=== PATIENT | male | born 1935 | race Caucasian/White ===

== ENCOUNTER 2018-05-11 11:49 | Emergency (ER) | payer MEDICARE, OTHER ==
[2018-05-11 12:53] LABS: #Eosinphils 0.1 thou/uL (0.0-0.7); #Lymphocytes 0.9 thou/uL (1.20-3.40); #Monocytes 0.7 thou/uL (0.11-0.59); #Neutrophils 5.7 thou/uL (1.40-6.50); %Lymphocytes 11.6 % (21.0-51.0); %Monocytes 9.4 % (0.0-10.0); Hemoglobin 15.1 g/dL (14.0-18.0); Mean Corpuscular HGB CONC 35.1 g/dL (32.0-36.0); Mean Corpuscular Hemoglobin 32.6 pg (27.0-31.0); Mean Corpuscular Volume 92.9 fL (78.0-98.0); Mean Platelet Volume 7.2 fL (7.4-10.4); Platelet Count 273 thou/uL (130-400); RBC Distribution Width 11.2 % (11.5-14.5); Red Blood Cell (RBC) Count 4.64 mill/uL (4.70-6.10); White Blood Cell (WBC) Count 7.3 thou/uL (4.8-10.8)
[2018-05-11 13:12] LABS: ALT (SGPT) 23 U/L (8-55); AST (SGOT) 29 U/L (5-34); Albumin 4.2 g/dL (3.4-4.8); Alkaline Phosphatase 87 U/L (40-150); Anion Gap 15 mmol/L (10-20); BUN (Urea Nitrogen) 8 mg/dL (8.4-25.7); Bilirubin, Total 0.7 mg/dL (0.2-1.2); Calc. Creatinine Clearance 0 mL/min (70-130); Calcium 9.4 mg/dL (7.8-10.44); Carbon Dioxide 22 mmol/L (23-31); Chloride 102 mmol/L (98-107); Estimated GFR-MDRD 69; Globulin 3.1 g/dL (2.4-3.5); Glucose 115 mg/dL (83-110); Protein, Total 7.3 g/dL (5.8-8.1); Sodium 134 mmol/L (136-145)
[2018-05-11 13:17] LABS: CKMB 1.4 ng/mL (0-6.6); Troponin I Less than 0.010 ng/mL (< 0.028)
[2018-05-11] MEDS ORDERED: Adacel (T-DAP) 0.5 ML VIAL ONE (13:42)
--- NOTE | 2018-05-11 14:10 | CT ---
NONCONTRAST CT HEAD: Date: 05/11/18 HISTORY: Head injury. Macular degeneration. Facial abrasions and neck pain after falling while walking. COMPARISON: None available. FINDINGS: There is an electronic device seen within the right lateral occipital scalp soft tissues resulting in significant streak artifact limiting evaluation of the right parietal and temporal lobes in this reg ion. There is diminished attenuation of the periventricular white matter, likely attributable to moderate to severe chronic small vessel ischemic changes. Small low density focus seen in the external limb of the left internal capsule which may represent a lacunar infarction of indeterminate age. Again, ther e is significant streak artifact through this region as well. No acute cortical infarction is seen. N o hemorrhage, mass effect, or midline shift is appreciated. There is diffuse cerebral volume loss. Ve ntricular system is normal in size, shape, and position for the degree of sulcal atrophy. There is a small amount of scalp soft tissue swelling in the left anterior frontal region. The orbits are normal and symmetric in appearance bilaterally. There is also mild right periorbital subcutaneou s soft tissue swelling with small hematoma adjacent to the anterior aspect of the right zygomatic bon e. There is gas seen anterior to the anterior wall of the right maxillary antrum with question of a f racture involving the anterior wall right maxillary antrum. However, there is no fluid in the right m axillary antrum as would be expected with a fracture. Visualized paranasal sinuses are clear. There a re postsurgical changes related to right mastoidectomy with evidence of cochlear implant. IMPRESSION: 1. No acute intracranial abnormalities demonstrated. 2. Left frontal scalp hematoma with right periorbital scalp soft tissue swelling and hematoma adjace nt to the right zygomatic bone. 3. Fracture anterior wall right maxillary antrum. CT facial bones is suggested for further evaluatio n. 4. Chronic small vessel ischemic changes and cerebral volume loss. 5. 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 POS: [facility]
--- NOTE | 2018-05-11 14:16 | CT ---
CT SCAN FACIAL BONES: Date: 05/11/18 HISTORY: Head injury after a fall while walking. Facial abrasions. FINDINGS: There is right periorbital subcutaneous soft tissue swelling with oval shaped area of increased densi ty adjacent to the right zygomatic bone suggesting small soft tissue hematoma. There is a minimally d epressed fracture involving the anterior wall right maxillary antrum with associated subcutaneous gas . Very tiny air fluid level is present. No additional fracture is seen involving the facial bones. Th e orbits are normal and symmetric in appearance bilaterally. There is scalp soft tissue swelling left anterior frontal region. The remainder of the visualized paranasal sinuses as well as left mastoid air cells are clear. Cochle ar implant is present on the right. Imaging of the visualized upper cervical spine demonstrates multilevel degenerative changes. There is a nondisplaced fracture involving the lateral left anterior arch of the C1 vertebral body. IMPRESSION: 1. Nondisplaced fracture involving the left anterior arch of the C1 vertebral body. 2. Minimally depressed fracture involving the anterior wall of the right maxillary antrum with small hematoma adjacent to the right zygomatic bone with right periorbital subcutaneous soft tissue swelli ng. 3. Scalp soft tissue swelling left anterior frontal region. Above findings discussed with Dr. Falcon in the emergency department on 05/11/18 at 1302 hours. CODE CR. POS: [facility]
--- NOTE | 2018-05-11 14:19 | CT ---
CT CERVICAL SPINE WITHOUT CONTRAST: Date: 05/11/18 HISTORY: Balance issues. Slipped and fell while walking in grocery store. Post-traumatic pain. TECHNIQUE: Limited evaluation of the skull base due to beam attenuation artifact secondary to a right cochlear i mplant. FINDINGS: There is a nondisplaced fracture along the anterior left C1 ring with extension into the left lateral mass of C1. Well corticated lucency along the left foramen transversarium is noted. C2 through C7 ve rtebral body heights are maintained. Additional cervical spine fractures are not appreciated. There is no prevertebral soft tissue swelling. Carotid atherosclerosis noted. There are varying degrees of central canal stenosis and foraminal narrowing due to degenerative valverde e. Evaluation is limited by technique. Calcification of the right lung apex. IMPRESSION: Left anterior C1 and left C1 lateral mass fracture. POS: [facility]
--- NOTE | 2018-05-13 17:01 | EKG ---
Test Reason : FALL Blood Pressure : / mmHG Vent. Rate : 081 BPM Atrial Rate : 081 BPM P-R Int : 136 ms QRS Dur : 076 ms QT Int : 380 ms P-R-T Axes : 041 006 034 degrees QTc Int : 441 ms Sinus rhythm with occasional Premature ventricular complexes Otherwise normal ECG Confirmed by ENE SIDDIQUI DO ([id number]), video editor MATEO SKAGGS ([id number] on 05/13/2018 5:01:02 PM Referred By: Confirmed By:ENE SIDDIQUI DO
== END 2018-05-11 14:42 | disposition home or self-care (01) ==
LOC: ERS 11:49
DX: S12.000A Unspecified displaced fracture of first cervical vertebra, initial encounter for closed fracture (principal); S02.40CA Maxillary fracture, right side, initial encounter for closed fracture; W19.XXXA Unspecified fall, initial encounter
CPT/HCPCS: 36415; 70450; 70486; 72125; 80053; 82553; 84484; 85025; 90471; 90715; 93005

== ENCOUNTER 2018-06-15 08:57 | Outpatient (CLI) | payer MEDICARE, OTHER ==
--- NOTE | 2018-06-15 10:47 | CT ---
NONCONTRAST CT CERVICAL SPINE: DATE: 06/15/18. HISTORY: Followup cervical spine fracture secondary to fall 5 weeks ago. COMPARISON: 05/11/18. FINDINGS: Again noted is the nondisplaced fracture involving the left anterior arch of the C1 vertebral body wi th slight extension to the left lateral mass or C1. The degree of separation of fracture fragments i s overall similar to the prior exam. No additional fracture is seen, and there is no evidence of a s ubluxation. There are stable degenerative changes seen in the cervical spine. Prevertebral soft tissues are within normal limits. Vascular calcification is seen in the carotid arteries. There are findings suggestive of a cochlear implant. There is symmetrical calcified biapical pleural ad parenchymal scarring. There has been no significant interval change from the prior exam. IMPRESSION: 1. Stable fracture left anterior ring of the C1 vertebral body with extension to the lateral mass wi th stable slight separation of fracture fragments. 2. CT scan of the cervical spine is stable from prior exam. POS: [facility]
== END 2018-06-15 08:58 | disposition home or self-care (01) ==
LOC: TBSIIMAG 08:57
PROVIDERS: ATTEND Neurological Surgery
DX: S12.9XXA Fracture of neck, unspecified, initial encounter (principal); S12.000A Unspecified displaced fracture of first cervical vertebra, initial encounter for closed fracture
CPT/HCPCS: 72125

== ENCOUNTER 2019-05-04 12:47 | Outpatient (CLI) | payer MEDICARE ==
--- NOTE | 2019-05-04 13:12 | RAD ---
Left hip 2 views HISTORY: Left hip pain. FINDINGS: Mild joint space narrowing, osteophytosis, and subchondral sclerosis. Femoral head contour is maintained. No acute fracture, dislocation, or aggressive osseous erosions. IMPRESSION: Mild osteoarthritic changes left hip.
== END 2019-05-04 12:48 | disposition home or self-care (01) ==
LOC: BICRAD 12:47
PROVIDERS: ATTEND Nurse Practitioner Family
DX: M25.552 Pain in left hip (principal); M16.12 Unilateral primary osteoarthritis, left hip

== ENCOUNTER 2019-07-03 10:23 | Outpatient (CLI) | payer MEDICARE ==
--- NOTE | 2019-07-03 11:19 | ULT ---
Abdominal ultrasound: 07/03/2019 COMPARISON: None HISTORY: Abdominal distention TECHNIQUE: Multiplanar grayscale sonographic imaging of the abdomen obtained. FINDINGS: The pancreas is not well seen secondary to bowel gas. Imaged portions of the IVC and aorta appear grossly unremarkable. No focal liver lesion or intrahepatic biliary dilatation is seen. Left lobe of the liver is not well visualized secondary to obscuration by bowel gas. There is no gallbladder wall thickening or pericholecystic fluid. No gallstones are noted. The sonogr apher reports a negative Jha's sign. Common bile duct measures 4 mm, within normal limits. Right kidney measures 10.6 cm in craniocaudal dimension. There is a midpole right renal cyst measurin g 1.6 cm. No right-sided hydronephrosis. Spleen measures up to 10.6 cm, within normal limits. No ascites is noted within the upper abdomen. Left kidney measures 11 cm in craniocaudal dimension and demonstrates no evidence for stone, hydronep hrosis, or mass lesion. IMPRESSION: No acute findings.
== END 2019-07-03 10:24 | disposition home or self-care (01) ==
LOC: BICULT 10:23
PROVIDERS: ATTEND Family Medicine
DX: R18.8 Other ascites (principal)
CPT/HCPCS: 76700

== ENCOUNTER 2020-03-10 18:01 | Emergency (ER) | payer MEDICARE ==
[2020-03-10] MEDS ORDERED: Ondansetron PF 4 MG/2 ML Vial ONE (18:24)
[2020-03-10] MEDS ORDERED: Morphine 4 MG/ML VIAL ONE ×2 (18:24→19:55)
[2020-03-10 18:50] LABS: #Lymphocytes 0.5 thou/uL (1.20-3.40); #Monocytes 0.7 thou/uL (0.11-0.59); #Neutrophils 12.1 thou/uL (1.40-6.50); %Eosinophils 0.1 % (0.0-10.0); %Lymphocytes 3.8 % (21.0-51.0); %Neutrophils 91.2 % (42.0-75.0); Mean Corpuscular HGB CONC 35.9 g/dL (32.0-36.0); Mean Corpuscular Volume 91.9 fL (78.0-98.0); Mean Platelet Volume 8.4 fL (7.4-10.4); Platelet Count 252 thou/uL (130-400); RBC Distribution Width 11.2 % (11.5-14.5); Red Blood Cell (RBC) Count 4.25 mill/uL (4.70-6.10); White Blood Cell (WBC) Count 13.3 thou/uL (4.8-10.8)
[2020-03-10 19:13] LABS: ALT (SGPT) 20 U/L (8-55); AST (SGOT) 33 U/L (5-34); Albumin 3.7 g/dL (3.4-4.8); Alkaline Phosphatase 101 U/L (40-110); Anion Gap 14 mmol/L (10-20); BUN (Urea Nitrogen) 8 mg/dL (8.4-25.7); Bilirubin, Total 0.4 mg/dL (0.2-1.2); CK (CPK) 117 U/L (30-200); Calc. Creatinine Clearance 0 mL/min (70-130); Calcium 8.5 mg/dL (7.8-10.44); Carbon Dioxide 21 mmol/L (23-31); Chloride 99 mmol/L (98-107); Estimated GFR-MDRD 82; Glucose 143 mg/dL (83-110); Potassium 4.1 mmol/L (3.5-5.1); Protein, Total 6.7 g/dL (5.8-8.1); Sodium 130 mmol/L (136-145)
--- NOTE | 2020-03-10 19:23 | RAD ---
LEFT HUMERUS TWO VIEWS: History: Left arm pain. FINDINGS/IMPRESSION: There is a medially displaced fracture involving the proximal shaft of the left humerus. POS: [facility]
--- NOTE | 2020-03-10 19:24 | RAD ---
LEFT FOREARM ONE VIEW: History: Pain FINDINGS/IMPRESSION: Exam is inadequate due to absence of at least two views. There is a posterior olecranon spur. No definite displaced fracture of the radius. POS: [facility]
--- NOTE | 2020-03-10 19:25 | RAD ---
LEFT HIP TWO VIEWS: History: Hip injury. Comparison: 05-04-19 FINDINGS: There are some mild arthritic changes of the hip joint. The bones appear demineralized. I do not appr eciate any evidence of fracture. IMPRESSION: No evidence of fracture. POS: [facility]
--- NOTE | 2020-03-10 20:09 | RAD ---
CHEST ONE VIEW: Date: 03-10-2020 Time: 6:14 P.M. History: Injury, left arm pain. FINDINGS: Comparison is made with 08-06-2019. The heart size is normal. Chronic changes in the lung jha are again seen without lobar consolidati on, pneumothoraces, yefri pulmonary edema, or pleural effusions. There is an acute medially displaced fracture involving the proximal shaft of the left humerus. IMPRESSION: As above. POS: [facility]
--- NOTE | 2020-03-10 20:16 | CT ---
CT OF BRAIN PERFORMED WITHOUT CONTRAST ENHANCEMENT: History: Fall with head injury. Comparison: 05-11-18 FINDINGS: There is generalized ventricular and sulcal prominence with decreased attenuation to the periventricu lar white matter consistent with some chronic white matter change. There are no signs of intracerebra l hemorrhage or extraaxial fluid collections. Once again, post-operative changes of the right mastoid air cells with an electronic device considera darren obscures detail in this region, similar to the previous exam. IMPRESSION: No acute intracranial abnormalities. POS: [facility]
--- NOTE | 2020-03-10 20:18 | CT ---
CT OF FACIAL BONES PERFORMED WITHOUT CONTRAST ENHANCEMENT: History: Fall with facial injury. Comparison: 05-11-18 FINDINGS: The nasal bone and zygomatic arches are intact. Pterygoid processes are intact. No air fluid levels within the sinuses. The mandible is intact and co ndyles appear to be in normal position. Carotid bulb calcifications are noted. Electronic device and post-operative changes of the right mast oid air cells. IMPRESSION: No acute injury. POS: [facility]
--- NOTE | 2020-03-10 20:21 | CT ---
CT CERVICAL SPINE WITH CORONAL AND SAGITTAL REFORMATIONS AND NO IV CONTRAST: History: Fall, injury, neck pain. Comparison: 06-15-18 FINDINGS: The previously noted fracture of the left anterior arch of C1 vertebral body with extension to the la teral mass appears to have healed in the interim. Multilevel degenerative changes are seen. No acute fracture, subluxation, or facet malalignment is identified. No abnormal soft tissue swelling is seen. The right trochlear implant is again noted. Biapical pleural and parenchymal scarring is again noted in the lung apices. IMPRESSION: No CT evidence of acute cervical spine fracture or subluxation. POS: [facility]
--- NOTE | 2020-03-10 20:22 | RAD ---
LEFT HAND THREE VIEWS: History: Mechanical fall with hand pain. FINDINGS: Bones appear demineralized. Arthritic changes are present. There are no signs of fracture or dislocat ion. IMPRESSION: No evidence of fracture. POS: [facility]
[2020-03-10] MEDS ORDERED: Acetaminophen 500 MG TAB ONE (20:23)
[2020-03-10] MEDS ORDERED: Fentanyl 100 MCG/2 ML VIAL ONE (20:23)
--- NOTE | 2020-03-16 11:24 | EKG ---
Test Reason : Blood Pressure : / mmHG Vent. Rate : 087 BPM Atrial Rate : 087 BPM P-R Int : 148 ms QRS Dur : 076 ms QT Int : 400 ms P-R-T Axes : 047 029 045 degrees QTc Int : 481 ms Sinus rhythm with frequent , and consecutive Premature ventricular complexes Possible Left atrial enlargement Prolonged QT Abnormal ECG Confirmed by ENE SIDDIQUI DO ([id number]), index editor DONTRELL BOO ([id number]) on 03/16/2020 11:24:22 AM Referred By: Confirmed By:ENE SIDDIQUI DO
== END 2020-03-10 21:45 | disposition home or self-care (01) ==
LOC: ERS 18:01
DX: S42.302A Unspecified fracture of shaft of humerus, left arm, initial encounter for closed fracture (principal); S00.03XA Contusion of scalp, initial encounter; W17.89XA Other fall from one level to another, initial encounter
CPT/HCPCS: 36415; 70450; 70486; 71045; 72125; 80053; 82550; 85025; 93005; 96374; 96375; 96376; J2270; J2405; J3010

== ENCOUNTER 2020-03-18 06:10 | Inpatient (IN) | payer MEDICARE, OTHER ==
[2020-03-18] MEDS ORDERED: Octreotide Acetate 50 MCG/ML AMP ONE (06:21)
[2020-03-18] MEDS ORDERED: Pantoprazole 40 MG VIAL ONE (06:21)
[2020-03-18 06:36] LABS: #Basophils 0.1 thou/uL (0.0-0.2); #Eosinphils 0.1 thou/uL (0.0-0.7); #Lymphocytes 2.1 thou/uL (1.20-3.40); #Monocytes 0.9 thou/uL (0.11-0.59); #Neutrophils 16.2 thou/uL (1.40-6.50); %Basophils 0.3 % (0.0-1.0); %Eosinophils 0.4 % (0.0-10.0); %Lymphocytes 11.1 % (21.0-51.0); %Monocytes 4.6 % (0.0-10.0); %Neutrophils 83.7 % (42.0-75.0); Hemoglobin 10.5 g/dL (14.0-18.0); Mean Corpuscular HGB CONC 33.6 g/dL (32.0-36.0); Mean Corpuscular Hemoglobin 31.6 pg (27.0-31.0); Mean Platelet Volume 8.1 fL (7.4-10.4); Platelet Count 482 thou/uL (130-400); RBC Distribution Width 11.5 % (11.5-14.5); Red Blood Cell (RBC) Count 3.33 mill/uL (4.70-6.10); White Blood Cell (WBC) Count 19.4 thou/uL (4.8-10.8)
[2020-03-18] MEDS ORDERED: Ondansetron PF 4 MG/2 ML Vial ONE (06:39)
[2020-03-18 06:41] LABS: INR-International Normal Ratio 1.2; PTT 23.2 sec (22.9-36.1)
[2020-03-18 06:58] LABS: ALT (SGPT) 20 U/L (8-55); AST (SGOT) 29 U/L (5-34); Albumin 3.2 g/dL (3.4-4.8); Alkaline Phosphatase 71 U/L (40-110); Anion Gap 18 mmol/L (10-20); BUN (Urea Nitrogen) 36 mg/dL (8.4-25.7); Bilirubin, Total 0.7 mg/dL (0.2-1.2); Calc. Creatinine Clearance 0 mL/min (70-130); Calcium 8.4 mg/dL (7.8-10.44); Carbon Dioxide 17 mmol/L (23-31); Chloride 103 mmol/L (98-107); Estimated GFR-MDRD 60; Globulin 2.7 g/dL (2.4-3.5); Glucose 211 mg/dL (83-110); Potassium 4.6 mmol/L (3.5-5.1); Protein, Total 5.9 g/dL (5.8-8.1); Sodium 133 mmol/L (136-145)
[2020-03-18] MEDS ORDERED: Octreotide Acetate 1,250 MCG in Sodium Chloride 0.9% 250 ML 250 ML IVPB SCH (07:30)
--- NOTE | 2020-03-18 07:35 | RAD ---
Chest one view HISTORY: Dyspnea. Hematemesis. COMPARISON: 03/10/2020. FINDINGS: Cardiac silhouette is magnified by projection. Pulmonary vasculature is unremarkable. Patient is slightly rotated leftward. Subtle parenchymal opacity at the left base may represent scarr ing or atelectasis and is unchanged. No lobar consolidation or evidence of pneumothorax. Biapical pleural calcification is stable. Healing fractures are now evident at the posterolateral aspect of right ribs 5 and 6. IMPRESSION : Healing right rib fractures. Stable radiographic appearance of the chest.
[2020-03-18] MEDS: Sodium Chloride 0.9% 1,000 ML IV SCH ×2 (09:42→18:44)
--- NOTE | 2020-03-18 10:02 | CON ---
DATE OF CONSULTATION: 03/18/2020 REQUESTING PHYSICIAN: Jayjay Reyes MD REASON FOR CONSULTATION: Hematemesis. HISTORY OF PRESENT ILLNESS: Demarco Rowell is an 85-year-old man, who is not a very good historian, but evidently has no significant past gastrointestinal history. He had a right humerus fracture about a week ago. His only medications are Tylenol with Codeine and naproxen, which he takes twice daily. Notably 1 week ago at the time of his humerus fracture, his hemoglobin was 14. He presented to the emergency department this morning stating he had 2 episodes of yefri hematemesis, both last night and this morning prior to arrival. He says this was a small amount mostly small blood clots, but this had never happened before. He does not have any ongoing nausea. He does not complain of any abdominal pain. There has been no melena or hematochezia, although he has not had a bowel movement for the past couple of days. He states chronic constipation is somewhat of an issue for him, but there is no history of GI bleeding. Upon arrival, he is mildly hypotensive, but not tachycardic and this has been stable the past several hours here, but his hemoglobin is down to 10.5, which is a significant decline from a week ago. BUN elevated to 36 with creatinine 1.15. He was started on Protonix and octreotide drips. He has recently arrived in the ICU. Currently, he has no other complaints. He is n.p.o. this morning. REVIEW OF SYSTEMS: Full review of systems including constitutional, head, eyes, ears, nose, throat, GI, , cardiovascular, respiratory, musculoskeletal, and neurologic systems is negative except as noted in the HPI. PAST MEDICAL HISTORY: TURP, left humerus fracture 1 week ago. ALLERGIES: NO KNOWN DRUG ALLERGIES. OUTPATIENT MEDICATIONS: 1. Tylenol with Codeine p.r.n. 2. Naproxen 375 mg twice daily. FAMILY HISTORY: Noncontributory. SOCIAL HISTORY: No smoking, alcohol, or drug use. PHYSICAL EXAMINATION: VITAL SIGNS: Temperature 96.4, pulse 75, blood pressure 97/56, and oxygen saturation 97% on room air. GENERAL: Frail 85-year-old man, sitting up in bed comfortably, in no distress. SKIN: He is pale. No jaundice. No rashes were palpable. EYES: No scleral icterus. Extraocular movements intact. ENT: Mucous membranes moist. No oral lesions. LYMPH: No submandibular or supraclavicular lymphadenopathy. THYROID: Nontender to palpation. HEART: Regular rate and rhythm. LUNGS: Clear to auscultation bilaterally. ABDOMEN: Bowel sounds present. Soft and nontender to palpation throughout. EXTREMITIES: No peripheral edema. His left arm is in a sling from recent humerus fracture. NEURO: Cranial nerves II through XII intact bilaterally. No focal deficits. LABORATORY STUDIES: Hemoglobin 10.5, which is down from 14.0 just 1 week ago; WBC 19.4; and platelets 42. INR 1.2. Sodium 133, potassium 4.6, BUN 36, and creatinine 1.15. LFTs all normal with total bilirubin 0.7, alkaline phosphatase 71, AST 29, ALT 20, and albumin 3.2. IMAGING STUDIES: Chest x-ray shows healing right rib fractures, scarring versus atelectasis of the left base. No acute processes. Looking back, he had an abdominal ultrasound in June 2019, which was a normal examination. ASSESSMENT AND PLAN: 1. Hematemesis, acute since last night. 2. Acute blood loss anemia. The patient has what appears to be upper gastrointestinal bleeding with characteristic acute blood loss anemia and elevated [id number] ratio, in the context of no prior gastrointestinal history, but ongoing NSAID use in light of his recent humerus fracture. Suspect erosive gastritis or possibly peptic ulcer disease. He is clinically stable, but has had significant decline in hemoglobin over the past week at least. I would recommend we proceed with diagnostic upper endoscopy. Continue with the Protonix and octreotide drips in the meantime. I discussed with the patient and he desires to proceed. We will plan for EGD later today. Keep n.p.o. in the meantime. Trend H and H and transfuse as needed. Thank you for the consultation. Please call anytime with questions or concerns. Job ID: [id number]
[2020-03-18] MEDS ORDERED: Fentanyl 100 MCG/2 ML VIAL ONE (11:53)
--- NOTE | 2020-03-18 12:48 | OP ---
DATE OF PROCEDURE: 03/18/2020 STATUE MAKER SURGEON: None. PROCEDURE: Esophagogastroduodenoscopy with control of hemorrhage. INDICATIONS: 1. Hematemesis. 2. Acute blood loss anemia. MEDICATIONS: See Anesthesia record. FINDINGS: After discussion of the risks, benefits, and alternatives of the procedure, informed consent was obtained and witnessed. Pre-endoscopic cardiopulmonary examination was satisfactory. Time-out was performed before sedation was achieved. Sedation was achieved with Anesthesia assistance in the endoscopy unit. The patient was kept in the supine position due to his left humerus fracture. A Pentax adult therapeutic upper endoscope was placed into the oropharynx and passed through the cricopharyngeus under direct visualization. It became quickly evident that the distal esophagus and proximal stomach were full of blood and clots. Therefore, the endoscope was removed and the patient was endotracheally intubated by Anesthesia staff for airway protection. With this having been accomplished, the upper endoscope was then passed back down into the esophagus. An extensive amount of time was spent, suctioning out old and more fresh blood and clots from the esophagus and gastric fundus. Eventually, I was able to completely suction out the blood and clots and a good examination of the entire mucosa was able to be obtained. In the distal esophagus, there was no evidence of any esophageal varices. There was a clean based ulceration in the distal esophagus just above the GE junction, but there was no stigmata of bleeding. There was surrounding friability of the esophageal mucosa. No Dara-Ness tear appreciated. The endoscope was advanced into the stomach. Forward and retroflexed views of the entire gastric mucosa were obtained. There was no evidence of any gastric varices. There was some diffuse friability and erythema throughout the stomach. In the gastric fundus along the greater curvature, there was a single gastric ulceration. This was not very large, but there was a large visible vessel associated with the ulcer. It was not actively bleeding at the time of the examination. I placed 3 hemoclips to the visible vessel on the ulcer site and good hemostasis was maintained. The endoscope was passed through the pylorus and into the first and second portions of the duodenum, which appeared unremarkable. The upper endoscope was then completely withdrawn and the patient allowed to recover. The patient tolerated the procedure well. There were no immediate postprocedure complications. IMPRESSION: 1. Small gastric ulcer with visible vessel in the fundus, not actively bleeding at the time of the examination, but clearly representing his recent bleeding lesion. Hemoclips placed x3, with hemostasis maintained. 2. Diffuse gastritis. 3. Distal erosive esophagitis with clean based ulceration just above the gastroesophageal junction. 4. Copious old blood and blood clots extensively suctioned from the gastric lumen, with good visualization finally able to be achieved. RECOMMENDATIONS: 1. Continue the IV proton pump inhibitor drip. This can be backed off to 40 mg IV q.12 hours dosing tomorrow. On hospital discharge, continue with proton pump inhibitor twice daily dosing orally, and continue this for at least 2 months, then back off to once daily dosing thereafter. 2. Avoid nonsteroidal anti-inflammatory drugs. 3. Check H pylori serology. If present, treat with triple therapy and confirm eradication. 4. Octreotide can be discontinued. 5. Clear liquid diet today. If doing well tomorrow, can advance diet as tolerated. 6. Continue to trend H and H, and transfuse as needed. 7. Please call anytime with questions or concerns. Job ID: [id number]
[2020-03-18] MEDS ORDERED: EPHEDRINE 25 MG/5 ML SYRINGE ONE (14:15)
[2020-03-18] MEDS ORDERED: PROPOFOL 200 MG/20 ML VIAL ONE (14:15)
[2020-03-18] MEDS ORDERED: Succinylcholine Chloride 20 MG/ML 10 ml SYRINGE FS ONE (14:15)
[2020-03-18] MEDS ORDERED: PHENYLEPHRINE-NS 100 MCG/ML 10 ML SYRINGE ONE (14:15)
[2020-03-18] MEDS ORDERED: Acetaminophen/Codeine 30-300mg Tablet PO PRN (17:10)
[2020-03-18] MEDS ORDERED: Polyethylene Glycol 3350 17 GM Packet PO PRN (17:10)
[2020-03-18] MEDS ORDERED: Ondansetron PF 4 MG/2 ML Vial IVP PRN (17:11)
[2020-03-18] MEDS ORDERED: Bisacodyl 10 MG SUPP PR PRN (17:11)
[2020-03-18] MEDS ORDERED: Acetaminophen 325 MG TAB PO PRN (17:11)
[2020-03-18] MEDS ORDERED: Senokot S 8.6-50 MG TAB PO PRN (17:11)
[2020-03-18] MEDS ORDERED: Ondansetron ODT 4 MG TAB PO PRN (17:11)
[2020-03-18] MEDS ORDERED: Calcium Carbonate 500 MG ChewTAB PO PRN (17:11)
[2020-03-18 18:10] LABS: Phosphorus 3.8 mg/dL (2.3-4.7)
[2020-03-18 18:12] LABS: Anion Gap 17 mmol/L (10-20); BUN (Urea Nitrogen) 44 mg/dL (8.4-25.7); Calc. Creatinine Clearance 54 mL/min (70-130); Carbon Dioxide 18 mmol/L (23-31); Chloride 108 mmol/L (98-107); Estimated GFR-MDRD 68; Glucose 156 mg/dL (83-110); Iron 45 ug/dL (65-175); Iron Binding Capacity, Total 236 mcg/dL (261-462); Sodium 138 mmol/L (136-145)
[2020-03-18 18:18] LABS: Hemoglobin 9.9 g/dL (14.0-18.0); Platelet Count 314 thou/uL (130-400)
[2020-03-18 18:31] LABS: Ferritin 155.49 ng/mL (22-322)
[2020-03-18] MEDS: cefTRIAXone\\ROCEPHIN 2 GM in Sodium Chloride 0.9% 100 ML IVPB SCH (18:44)
--- NOTE | 2020-03-18 19:16 | HP ---
PRIMARY CARE PHYSICIAN: Dr. Iglesias. CHIEF COMPLAINT: Hematemesis. HISTORY OF PRESENT ILLNESS: The patient is an 85-year-old male with no significant past medical history that presents to the ER with above complaint. The patient reports approximately 2 episodes of vomiting blood. He had a recent left humerus fracture, but no fall since. He denies any history of liver disease. He denies use of any blood thinners. He denies any abdominal pain, diarrhea or bloody stools. He is currently taking NSAIDs, naproxen for his left humerus fracture pain. Denies any fever or chills. Denies any light headedness or chest pain or SOB. For these reasons, the patient was brought into the ER. The patient presented with a normal blood pressure, tachycardic with a heart rate of 97, respirations were 24, he was 100% on room air. He was afebrile. His hemoglobin and hematocrit were 10.5 and 31.3 respectively, platelets were 482, WBCs were 19.4. His PT was 25, his INR was 1.2. His BUN was 36 and his creatinine was 1.15. He was started on octreotide and PPIs IV. He was given IV fluids, 1 L normal saline, and some Zofran, and GI was consulted, Dr. Ortiz. PAST MEDICAL HISTORY: 1. Hearing loss. 2. Macular degeneration. PAST SURGICAL HISTORY: 1. Left humerus fracture approximately 1 week ago. 2. Right hip fracture. 3. TURP. SOCIAL HISTORY: The patient lives with his family at home. He has no history of smoking, illicit drug use, or alcohol intake. FAMILY HISTORY: Noncontributory to this case. ALLERGIES: NO KNOWN DRUG ALLERGIES. HOME MEDICATIONS: 1. Naproxen 375 p.o. b.i.d. 2. Tylenol with codeine #3 one pill p.o. q.6 p.r.n. pain. 3. Flomax 0.4 mg p.o. daily. REVIEW OF SYSTEMS: All review of systems are negative unless otherwise stated in the HPI. PHYSICAL EXAMINATION: VITAL SIGNS: Temperature 98.3, blood pressure 111/63, heart rate 116, respirations 16, 98% on room air. CONSTITUTIONAL: The patient is alert, oriented to person, place, and time. The patient has intermittent bouts of confusion, but no focal deficits and able to follow commands. HEAD: Atraumatic and normocephalic. EYES: PERRLA. Extraocular muscles intact. Sclerae nonicteric. ENT: TMs intact bilaterally. Nares are patent bilaterally. Oropharynx is clear. Uvula midline. Pale mucous membranes, no oral lesions, and dry mucous membranes. NECK: Trachea midline. Supple. No JVD. No cervical adenopathy. RESPIRATIONS: Respirations are even and unlabored. Clear to auscultation. No wheezes, rhonchi, or rales. CARDIAC: S1, S2 appreciated. 3/6 murmur. No rubs or gallops. ABDOMEN: Abdomen is ocuk-br-oqsdgjbnrz tender to the left lower quadrant. It is firm in the lower left quadrant. There is no rebounding. There is no guarding. The patient is passing flatus. Last BM was this morning with pellet stools. Negative Jha sign. BACK: No CVA tenderness. No central spinous tenderness. EXTREMITIES: Upper extremities; left upper extremity has decreased range of motion secondary to humerus fracture. There is swelling and bruising. Right upper extremity is normal. Strength normal. Sensation is intact bilaterally. Palpable radial pulses. Lower extremities; full range of motion. Strength intact. Sensation intact. Palpable pedal pulses. No swelling. NEUROLOGIC: Cranial nerves 2 through 12 are intact. No focal deficits. The patient is slightly confused, but he is alert and oriented to person, place, and time. Most likely, secondary to postop anesthesia. PSYCHIATRIC: No suicidal or homicidal ideation. Normal affect. LABORATORY AND DIAGNOSTIC DATA: The patient's hemoglobin was 10.5, hematocrit 31.3, platelets 482. PT 15, INR 1.2, APTT is 23.2. WBCs 19.4. Sodium 133, potassium 4.6, chloride 103, carbon dioxide 17, creatinine 1.15, BUN 36, glucose 211. T bilirubin 0.7, AST 29, ALT 20, alkaline phosphatase 71, albumin 3.2. Chest x- ray was negative for any acute process. Positive for healing right rib fractures. IMPRESSION AND PLAN: 1. Hematemesis. We will admit the patient to telemetry for inpatient status. Expected length of stay, at least 2 midnights. Currently, the patient is mildly tachycardic with a stable blood pressure, stable respirations, and stable SpO2. The patient is status post EGD from Dr. Ortiz who found a nonbleeding gastric ulcer. Then, he placed clips. We will continue the Protonix drip, Rocephin IV, and IV fluids. We will trend H and H. We will check a mag and phos. Continue clear liquid diet and check iron studies. 2. Acute blood loss anemia secondary to #1. 3. Hypotension, resolved. The patient presented with low blood pressure in the ER. 4. Hyponatremia. The patient presented with a sodium of 133, mild. Continue IV fluids and recheck orthostatic vital signs in the a.m. 5. Sequential compression devices for deep venous thrombosis prophylaxis. No pharmacoprophylaxis secondary to frequent falls and bleeding. Protonix for gastrointestinal prophylaxis. Consult PT and OT. The patient is a full code. Discussed the case with Dr. Flood. Job ID: [id number] [facility]
[2020-03-18] MEDS: Dextrose 5 %-0.45 % NaCl 1,000 ML IV SCH (19:26)
[2020-03-18] MEDS ORDERED: Fleet Enema 133 ML BOT PR SCH (20:00)
--- NOTE | 2020-03-18 20:08 | RAD ---
ONE VIEW ABDOMEN: 03/18/20 HISTORY: Abdominal rigidity. COMPARISON: None. FINDINGS: Supine view of the abdomen demonstrates multiple air filled loops of small bowel. Scattered fecal mat erial is noted in the colon. No evidence of pneumoperitoneum on the supine projection. There appears to be postsurgical change in the epigastric region. IMPRESSION: Prominent air filled loops of small bowel. Better interrogation with abdomen and pelvic CT utilizing oral and IV contrast is recommended. POS: PPP
[2020-03-18] MEDS: Tamsulosin HCl 0.4 MG CAP PO SCH (20:45)
[2020-03-19] MEDS: Pantoprazole 80 MG, Admixture Fee 1 EACH in Sodium Chloride 0.9% 100 ML IVPB SCH ×3 (00:25→23:50)
[2020-03-19 03:55] LABS: ALT (SGPT) 17 U/L (8-55); AST (SGOT) 20 U/L (5-34); Albumin 2.8 g/dL (3.4-4.8); Alkaline Phosphatase 59 U/L (40-110); Anion Gap 12 mmol/L (10-20); BUN (Urea Nitrogen) 38 mg/dL (8.4-25.7); Bilirubin, Total 0.4 mg/dL (0.2-1.2); Calc. Creatinine Clearance 57 mL/min (70-130); Calcium 7.6 mg/dL (7.8-10.44); Carbon Dioxide 18 mmol/L (23-31); Chloride 108 mmol/L (98-107); Estimated GFR-MDRD 73; Glucose 175 mg/dL (83-110); Potassium 4.1 mmol/L (3.5-5.1); Protein, Total 4.8 g/dL (5.8-8.1); Sodium 134 mmol/L (136-145)
[2020-03-19 04:03] LABS: Band 4 % (5-11); Hemoglobin 8.1 g/dL (14.0-18.0); Hypochromia SLIGHT = 6-15 cells (100X) (0-5/hpf); Lymphocytes 6 % (21-51); MDiff Complete? YES; Mean Corpuscular HGB CONC 34.2 g/dL (32.0-36.0); Mean Corpuscular Hemoglobin 32.4 pg (27.0-31.0); Mean Corpuscular Volume 94.8 fL (78.0-98.0); Mean Platelet Volume 7.7 fL (7.4-10.4); Monocytes 4 % (0-10); Neutrophil 86 % (42-75); Platelet Count 330 thou/uL (130-400); Platelet Morphology Comment Appears Adequate; RBC Distribution Width 11.8 % (11.5-14.5); White Blood Cell (WBC) Count 22.8 thou/uL (4.8-10.8)
[2020-03-19] MEDS: Dextrose 5 %-0.45 % NaCl 1,000 ML IV SCH ×2 (06:08→12:55)
--- NOTE | 2020-03-19 10:35 | PRG ---
DATE OF SERVICE: 03/19/2020 SUBJECTIVE: The patient is without complaints this morning. He denies having any abdominal pain. No nausea or vomiting. He did have one non-melenic stool overnight. PHYSICAL EXAMINATION: VITAL SIGNS: Temperature 97.6, blood pressure 106/54, pulse 81. GENERAL: He is sleepy, but readily arousable. He appears weak and pale, but in no distress. HEENT: Shows anicteric sclerae. Oropharynx is moist. CV: Shows normal S1 and S2. Regular rate and rhythm. CHEST: Shows breath sounds. Poor excursion. ABDOMEN: Soft. No distention. No tympany. No tenderness. He has active bowel sounds. EXTREMITIES: Show no edema. LABORATORY DATA: WBCs 22.8; hemoglobin 8.1 at 3:00 a.m., 9.9 at 6:00 p.m. yesterday; platelet count 330. Sodium 134, potassium 4.1, chloride 108, CO2 of18, creatinine 0.97, BUN of 38. LFTs are normal. Vitamin B12 is 628. Folic acid is 18.5. Ferritin is 155, TIBC is 236, serum iron is 45. ASSESSMENT: 1. Upper gastrointestinal bleed from fundic gastric ulcer with visible vessel, status post hemoclip placement. Also could be NSAID related. 2. Erosive esophagitis. 3. Recent right humerus fracture with usage of Tylenol 3 and Naprosyn for pain. 4. Acute blood loss anemia. Blood count is trending down, but without sign of active bleeding, likely equalization. RECOMMENDATION: 1. Continue to monitor and trend blood count. 2. Advance diet to full liquid. 3. The patient is stable to be transferred to floor from GI standpoint, we will follow. 4. Continue with IV pantoprazole, with transition to p.o. when the patient is fully p.o. Job ID: [id number]
[2020-03-19 10:53] LABS: Hemoglobin 7.6 g/dL (14.0-18.0); Platelet Count 300 thou/uL (130-400)
--- NOTE | 2020-03-19 14:29 | PDOC.EVN ---
Event Note - Event Note Event Note: Patient seen and examined for GI bleeding. Chart reviewed. Confused. Vitals reviwed. Lungs CTA b/l. Heart S1S2 +. Case d/w DOCK OPERATOR Nelson. I agree with the note, A and P per DIONICIO Daomn.
--- NOTE | 2020-03-19 16:13 | PDOC.HOSPP ---
- Subjective Encounter Date: 03/19/20 Encounter Time: 10:30 Subjective: Patient seen and examined for GI bleeding. No new bleeding. No N/V. No new complaints. Overnight events noted - Objective Vital Signs & Weight: Vital Signs (12 hours) Temp Pulse Pulse Pulse Resp BP BP 03/19/20 16:00 98.5 F 111 H 19 03/19/20 13:20 98.1 F 106 H 14 03/19/20 11:35 98.0 F 03/19/20 11:15 108 H 110 H 109/69 137/69 03/19/20 08:00 03/19/20 07:00 97.6 F BP BP BP Pulse Ox Pulse Ox Pulse Ox 03/19/20 16:00 123/58 L 94 L 03/19/20 13:20 115/53 L 94 L 03/19/20 11:35 03/19/20 11:15 96 96 03/19/20 08:00 106/69 112/68 94 L 03/19/20 07:00 Weight Weight 165 lb 9.074 oz Most Recent Monitor Data Heart Rate from ECG 109 NIBP 137/69 NIBP BP-Mean 91 Respiration from ECG 24 SpO2 96 I&O: 03/18/20 03/19/20 03/20/20 06:59 06:59 06:59 Intake Total 2625 480 Output Total 1600 400 Balance 1025 80 Result Diagrams: 03/19/20 16:12 03/19/20 02:50 EKG Reviewed by me: Yes (Tele SR) Hospitalist ROS - Review of Systems Respiratory: denies: cough, dry, shortness of breath, hemoptysis, SOB with excertion, pleuritic pain, sputum, wheezing, other Cardiovascular: denies: chest pain, palpitations, orthopnea, paroxysmal noc. dyspnea, edema, light headedness, other Gastrointestinal: denies: nausea, vomiting, abdominal pain, diarrhea, constipation, melena, hematochezia, other - Medication Medications: Active Medications Generic Name Dose Route Start Last Admin Trade Name Freq PRN Reason Stop Dose Admin Pantoprazole Sodium 80 mg/ 100 mls @ 10 mls/hr 03/18/20 07:30 03/19/20 12:55 Miscellaneous Medication 1 IVPB 100 mls each/ Sodium Chloride INF MYRIAM Administration Ceftriaxone Sodium 2 gm/ 100 mls @ 200 mls/hr 03/18/20 18:00 03/18/20 18:44 Sodium Chloride IVPB 100 mls Q24HR MYRIAM Administration Dextrose/Sodium Chloride 1,000 mls @ 75 mls/hr 03/18/20 19:15 03/19/20 12:55 D5 1/2 Ns IV 1,000 mls .[id number] MYRIAM Administration Tamsulosin HCl 0.4 mg 03/18/20 21:00 03/18/20 20:45 Flomax PO 0.4 mg HS MYRIAM Administration - Exam General Appearance: NAD Heart: RRR, no gallops Respiratory: no wheezes, no ronchi Gastrointestinal: non-tender, non-distended, normal bowel sounds Extremities: no cyanosis, no clubbing Neurological: no new deficit Hosp A/P - Plan DVT proph w/SCDs UGI bleeding due to gastric ulcer s/p hemoclip Erosive esophagitis Acute blood loss anemia Hypotension due to GI bleeding - improved Urinary retention requiring banks catheter placement Recent humeral fracture BPH Hyponatremia PLAN: Cont IVF Cont Protonix drip Advance diet to Full liqd PT eval Family updated Cont Flomax Orthostatic vitals in AM Monitor H/H Transfer to tele
[2020-03-19 16:22] LABS: Hemoglobin 7.8 g/dL (14.0-18.0); Platelet Count 288 thou/uL (130-400)
--- NOTE | 2020-03-19 18:25 | CON ---
DATE OF CONSULTATION: 03/19/2020 REASON FOR CONSULTATION: Urinary retention. HISTORY OF PRESENT ILLNESS: This is an 85-year-old male, who has recently fallen and broken his left arm. He was then hospitalized yesterday for upper GI bleed due to a gastric ulcer, which has now been hemoclipped. He was found to be in urinary retention last night and Shannon catheter was placed. In reviewing his records, I see that he has a history of transurethral resection of the prostate several years ago. More recently, he has been followed by Dr. Melo who has been managing his overactive symptoms and incontinence. He was scheduled for cystoscopy in the office today to rule out bladder neck contracture, but is currently hospitalized. In speaking with the patient this afternoon, he is not able to answer any of my questions or provide much meaningful information. He remains very disoriented. Information has been taken from the patient's chart as he cannot provide any answers. PAST MEDICAL HISTORY: 1. Macular degeneration. 2. Hearing loss. PAST SURGICAL HISTORY: 1. Hip fracture. 2. Transurethral resection of prostate. FAMILY HISTORY: Reviewed from the chart. Noncontributory. SOCIAL HISTORY: . Lives in [place]. Nonsmoker. ALLERGIES: NO KNOWN DRUG ALLERGIES. MEDICATIONS: Reviewed, pertinent for Flomax. REVIEW OF SYSTEMS: Unable to obtain secondary to the patient's disorientation. PHYSICAL EXAMINATION: VITAL SIGNS: Afebrile, vitals stable. Good urine output. GENERAL: No acute distress. HEAD: Normocephalic and atraumatic. EYES: Extraocular movements intact. Sclerae nonicteric. NECK: Supple. Trachea midline. LUNGS: Breathing unlabored. Symmetric chest expansion. HEART: Regular rate and rhythm. ABDOMEN: Soft, nontender, and nondistended. : Normal phallus with Shannon catheter in good position, draining clear urine. EXTREMITIES: Lower extremities without clubbing, cyanosis, or edema. Normal right upper extremity. Left upper extremity in a sling with significant bruising and edema. NEUROLOGIC: Alert and oriented to person and place only. LABORATORY DATA: Reviewed, showing creatinine 0.97. ASSESSMENT AND PLAN: 1. Urinary retention. 2. History of transurethral resection of prostate with possible bladder neck contracture. Given the patient's disorientation and overall health status currently, Shannon catheter will need to remain likely for at least 2 weeks. I will help arrange followup with Dr. Melo for void trial at that point. Job ID: [id number]
[2020-03-19] MEDS: cefTRIAXone\\ROCEPHIN 2 GM in Sodium Chloride 0.9% 100 ML IVPB SCH (18:43)
[2020-03-19] MEDS: Tamsulosin HCl 0.4 MG CAP PO SCH (20:28)
[2020-03-19] MEDS: Polyethylene Glycol 3350 17 GM Packet PO SCH (20:28)
[2020-03-20] MEDS: Dextrose 5 %-0.45 % NaCl 1,000 ML IV SCH (00:23)
[2020-03-20 05:11] LABS: ALT (SGPT) 22 U/L (8-55); AST (SGOT) 33 U/L (5-34); Albumin 2.9 g/dL (3.4-4.8); Alkaline Phosphatase 74 U/L (40-110); Anion Gap 11 mmol/L (10-20); BUN (Urea Nitrogen) 26 mg/dL (8.4-25.7); Bilirubin, Total 0.4 mg/dL (0.2-1.2); Calc. Creatinine Clearance 65 mL/min (70-130); Calcium 7.8 mg/dL (7.8-10.44); Carbon Dioxide 20 mmol/L (23-31); Chloride 106 mmol/L (98-107); Estimated GFR-MDRD 85; Globulin 2.2 g/dL (2.4-3.5); Glucose 157 mg/dL (83-110); Magnesium 1.8 mg/dL (1.6-2.6); Potassium 3.7 mmol/L (3.5-5.1); Protein, Total 5.1 g/dL (5.8-8.1); Sodium 133 mmol/L (136-145)
[2020-03-20 05:37] LABS: #Eosinphils 0.1 thou/uL (0.0-0.7); #Lymphocytes 0.8 thou/uL (1.20-3.40); #Monocytes 1.9 thou/uL (0.11-0.59); #Neutrophils 19.7 thou/uL (1.40-6.50); %Eosinophils 0.4 % (0.0-10.0); %Lymphocytes 3.5 % (21.0-51.0); %Monocytes 8.4 % (0.0-10.0); %Neutrophils 87.7 % (42.0-75.0); Hemoglobin 8.1 g/dL (14.0-18.0); Mean Corpuscular HGB CONC 35.1 g/dL (32.0-36.0); Mean Corpuscular Hemoglobin 33.3 pg (27.0-31.0); Mean Corpuscular Volume 94.9 fL (78.0-98.0); Mean Platelet Volume 7.4 fL (7.4-10.4); Platelet Count 289 thou/uL (130-400); Red Blood Cell (RBC) Count 2.44 mill/uL (4.70-6.10); White Blood Cell (WBC) Count 22.4 thou/uL (4.8-10.8)
--- NOTE | 2020-03-20 08:03 | CON ---
DATE OF CONSULTATION: 03/19/2020 HISTORY OF PRESENT ILLNESS: Mr. Rowell is an 85-year-old male, who is admitted to the intermediate care unit. He reportedly had been throwing up blood. He is a poor historian. All he would say to me was that he had to be home for the [facility]. He has a history of recent fracture. He has been taking anti-inflammatories for this. He has gone down for endoscopy and was found to have an ulcer in the visible vessel. He clinically appears to have stopped bleeding. All he will say is that he wants to go home. PAST MEDICAL HISTORY: Remarkable for, 1. TURP. 2. History of a humerus fracture. FAMILY HISTORY: Negative for lung disease in early age. REVIEW OF SYSTEMS: Otherwise not accurately obtainable. PHYSICAL EXAMINATION: VITAL SIGNS: Blood pressures in the 120 range. Heart rate was in the 90s. He is afebrile. Oximetry is in the mid-to-high 90s on room air. HEAD AND NECK: Unremarkable. His pupils are equal. Sclerae are anicteric. His neck is without lymphadenopathy. LUNGS: Clear. HEART: Regular rhythm. ABDOMEN: Soft, minimally tender in his epigastrium. EXTREMITIES: Without clubbing, cyanosis, or edema. NEURO: Grossly nonfocal. Again, he was very tangential and appeared not to understand my reasons for him staying in the hospital, stating he just needed to be home for the [facility]. IMPRESSION: Gastrointestinal bleed, clinically stabilizing. His hemoglobin was 10.5 on presentation, a week before it was 14.0 and the lowest has been at 7.6, which was in the morning of consultation. He is being followed closely by Gastroenterology. He appears to be stable to move out of the intermediate care unit. TIME SPENT: This is a 50-minute consult, 50% of the time spent on the unit coordinating care. Job ID: [id number]
[2020-03-20] MEDS: Acetaminophen/Codeine 30-300mg Tablet PO PRN (08:47)
[2020-03-20] MEDS: Pantoprazole 80 MG, Admixture Fee 1 EACH in Sodium Chloride 0.9% 100 ML IVPB SCH (10:08)
[2020-03-20] MEDS ORDERED: Nitroglycerin 0.4 MG TAB (25 Tab Bottle) PO PRN (18:09)
[2020-03-20] MEDS: Metoprolol Tartrate 25 MG TAB PO SCH (20:53)
[2020-03-20] MEDS: Polyethylene Glycol 3350 17 GM Packet PO SCH (20:53)
[2020-03-20] MEDS: Tamsulosin HCl 0.4 MG CAP PO SCH (20:53)
[2020-03-21] MEDS: Acetaminophen/Codeine 30-300mg Tablet PO PRN (04:58)
[2020-03-21] MEDS: Metoprolol Tartrate 25 MG TAB PO SCH (09:11)
--- NOTE | 2020-03-21 09:19 | PDOC.HOSPP ---
- Subjective Encounter Date: 03/20/20 Encounter Time: 16:00 Subjective: Patient seen and examined for GI bleed. RN reported intermittent Afib. Toleraing full liqd diet. No new complaints. No overnight events - Objective Vital Signs & Weight: Vital Signs (12 hours) Temp Pulse Resp BP BP BP Pulse Ox 03/21/20 07:40 97.2 F L 83 20 122/59 L 108/53 L 107/53 L 98 03/21/20 04:00 98.2 F 102 H 16 121/56 L 95 03/21/20 00:00 99 24 H Weight Weight 174 lb 2.643 oz Most Recent Monitor Data Heart Rate from ECG 109 NIBP 137/69 NIBP BP-Mean 91 Respiration from ECG 24 SpO2 96 I&O: 03/20/20 03/21/20 03/22/20 06:59 06:59 06:59 Intake Total 2440 1040 Output Total 825 700 Balance 1615 340 Result Diagrams: 03/20/20 04:35 03/20/20 04:35 EKG Reviewed by me: Yes (Tele SR with intermittent Afib) Hospitalist ROS - Review of Systems Respiratory: denies: cough, dry, shortness of breath, hemoptysis, SOB with excertion, pleuritic pain, sputum, wheezing, other Cardiovascular: denies: chest pain, palpitations, orthopnea, paroxysmal noc. dyspnea, edema, light headedness, other Gastrointestinal: denies: nausea, vomiting, abdominal pain, diarrhea, constipation, melena, hematochezia, other - Medication Medications: Active Medications Generic Name Dose Route Start Last Admin Trade Name Freq PRN Reason Stop Dose Admin Acetaminophen/Codeine Phosphate 1 tab 03/18/20 17:14 03/21/20 04:58 Tylenol #3 PO 1 tab Q6H PRN Administration Moderate Pain (4-6) Metoprolol Tartrate 12.5 mg 03/20/20 21:00 03/21/20 09:11 Lopressor PO 12.5 mg BID MYRIAM Administration Pantoprazole Sodium 40 mg 03/20/20 21:00 03/21/20 09:11 Protonix PO 40 mg BID MYRIAM Administration Polyethylene Glycol 17 gm 03/19/20 21:00 03/20/20 20:53 Miralax PO 17 gm HS MYRIAM Administration Tamsulosin HCl 0.4 mg 03/18/20 21:00 03/20/20 20:53 Flomax PO 0.4 mg HS MYRIAM Administration - Exam General Appearance: NAD Heart: RRR, no gallops Respiratory: no wheezes, no ronchi Gastrointestinal: non-tender, non-distended, normal bowel sounds Extremities: no cyanosis, no clubbing Neurological: no new deficit Hosp A/P - Plan DVT proph w/SCDs UGI bleeding due to gastric ulcer s/p hemoclip Erosive esophagitis Acute blood loss anemia New onset Afib - rate controlled - not a anticoag candidate Hypotension due to GI bleeding - improved Urinary retention requiring banks catheter placement Recent humeral fracture BPH Hyponatremia PLAN: Add low dose Metoprolol Change Protonix - change to PO Advance diet PT eval Cont Flomax AM labs
--- NOTE | 2020-03-21 10:40 | PRG ---
DATE OF SERVICE: 03/20/2020 SUBJECTIVE: Mr. Rowell is resting comfortably. He is sleeping, easily arousable. He has had no overt bleeding. OBJECTIVE: VITAL SIGNS: Pulse is 101 to 107, temperature 99.4, blood pressure 118/54. ABDOMEN: Soft, nontender. LABORATORY DATA: White count hemoglobin is 8.1, platelet count 289, 87% segs. Sodium 133, potassium 3.7, BUN and creatinine are 26 and 0.85. BUN has come down from 44 on presentation. Liver function tests normal. Protein 5.1, albumin 3.1. TSH normal. B12 628, ferritin 155, iron was 45 on presentation, TIBC was 236 on presentation, both were low. ASSESSMENT: 1. Gastrointestinal hemorrhage from fundic gastric ulcer with visible vessel, status post hemoclip, was felt to be NSAID related. 2. Erosive esophagitis. 3. Anemia, stable. He was taking Naprosyn and Tylenol 3 for humerus fracture. His iron studies indicate more of a chronic anemia. Anemia is likely a combination of chronic disease and acute gastrointestinal bleeding. There is no sign of acute bleeding now. 4. Leukocytosis of unclear etiology, possibility of pneumonia, aspiration with anesthesia or urinary tract infection should all be considered. PLAN: We would continue PPI therapy. We will at this time if there is any evidence of acute gastrointestinal hemorrhage. If I can be of any further assistance in the patient's care, please do not hesitate to contact me. Job ID: [id number]
[2020-03-21] MEDS: Dextrose 5 %-0.45 % NaCl 1,000 ML IV SCH (12:48)
--- NOTE | 2020-03-21 14:00 | PRG ---
DATE OF SERVICE: 03/21/2020 SUBJECTIVE: We were asked by the [facility] Service to see patient. The patient was seen in our office on March 08 time frame for a left proximal humerus fracture. At that time, he was placed in a clamshell brace for his fracture. We were called about the patient prior to the . He was in the ER and we had the patient put into a sling. The reason [facility] called us was he had increased edema and ecchymosis to that left upper extremity specially into the forearm and digits. Currently, the patient is at bedside, eating. He has been admitted for hematemesis and is currently working with physical therapy. OBJECTIVE: I looked at the patient's arm. The clamshell is on well. He does have some increased ecchymosis and edema to the left upper extremity, but he is moving his digits okay. They are swollen, but he has good sensations and movements. I asked the patient if he was getting better. He states he is moderately feeling better and we encouraged him to move the arm a little bit more. ASSESSMENT: Humerus fracture, healing well. PLAN: I spoke with [facility] doctor and let them know that this is a normal finding for someone who breaks proximal humerus specially a patient in this age group. We will see him again in 2 to 4 weeks in our clinic with new x-rays, but I encouraged him to elevate the arm on a pillow, keep working in moving the hand to make sure he is trying to get the fluid out of the arm and elevate it above his heart whenever he is able to. I explained this to the tech and the patient. Hopefully in the next week or so, swelling will get little better. Pain will lessen and he will start moving that arm a little bit better. Job ID: [id number] [facility]
--- NOTE | 2020-03-21 16:02 | PDOC.HOSPP ---
- Subjective Encounter Date: 03/21/20 Encounter Time: 12:30 Subjective: Patient seen and examined for encephalopathy. Failed swallow eval. . No new complaints. No overnight events - Objective Vital Signs & Weight: Vital Signs (12 hours) Temp Pulse Resp BP BP BP Pulse Ox 03/21/20 11:32 98.1 F 85 18 118/63 94 L 03/21/20 07:40 97.2 F L 83 20 122/59 L 108/53 L 107/53 L 98 Weight Weight 174 lb 2.643 oz Most Recent Monitor Data Heart Rate from ECG 109 NIBP 137/69 NIBP BP-Mean 91 Respiration from ECG 24 SpO2 96 I&O: 03/20/20 03/21/20 03/22/20 06:59 06:59 06:59 Intake Total 2440 1040 Output Total 825 700 Balance 1615 340 Result Diagrams: 03/20/20 04:35 03/20/20 04:35 EKG Reviewed by me: Yes (Tele SR) Hospitalist ROS - Review of Systems ROS unobtainable: due to mental status - Medication Medications: Active Medications Generic Name Dose Route Start Last Admin Trade Name Freq PRN Reason Stop Dose Admin Acetaminophen/Codeine Phosphate 1 tab 03/18/20 17:14 03/21/20 04:58 Tylenol #3 PO 1 tab Q6H PRN Administration Moderate Pain (4-6) Dextrose/Sodium Chloride 1,000 mls @ 50 mls/hr 03/21/20 12:30 03/21/20 12:48 D5 1/2 Ns IV 1,000 mls .Q20H MYRIAM Administration Metoprolol Tartrate 12.5 mg 03/20/20 21:00 03/21/20 09:11 Lopressor PO 12.5 mg BID MYRIAM Administration Pantoprazole Sodium 40 mg 03/20/20 21:00 03/21/20 09:11 Protonix PO 40 mg BID MYRIAM Administration Polyethylene Glycol 17 gm 03/19/20 21:00 03/20/20 20:53 Miralax PO 17 gm HS MYRIAM Administration Tamsulosin HCl 0.4 mg 03/18/20 21:00 03/20/20 20:53 Flomax PO 0.4 mg HS MYRIAM Administration - Exam General Appearance: ill appearing General - other findings: confused Neck: supple, no JVD Respiratory: no wheezes, no rales Gastrointestinal: non-tender, non-distended Extremities: no cyanosis, no clubbing Psychiatric: somnolent Hosp A/P - Plan DVT proph w/SCDs UGI bleeding due to gastric ulcer s/p hemoclip Erosive esophagitis Acute blood loss anemia Swallow dysfunction New onset Afib - rate controlled - not a anticoag candidate Hypotension due to GI bleeding - improved Urinary retention requiring banks catheter placement Recent humeral fracture BPH Hyponatremia PLAN: NPO per CAFETERIA AIDE Cont Metoprolol Cont Protonix Advance diet PT eval Cont Flomax AM labs
[2020-03-21 16:38] LABS: #Eosinphils 0.1 thou/uL (0.0-0.7); #Monocytes 1.4 thou/uL (0.11-0.59); #Neutrophils 14.1 thou/uL (1.40-6.50); %Basophils 0.2 % (0.0-1.0); %Eosinophils 0.7 % (0.0-10.0); %Lymphocytes 5.7 % (21.0-51.0); %Monocytes 8.6 % (0.0-10.0); %Neutrophils 84.8 % (42.0-75.0); Hemoglobin 7.5 g/dL (14.0-18.0); Mean Corpuscular HGB CONC 33.4 g/dL (32.0-36.0); Mean Corpuscular Hemoglobin 31.9 pg (27.0-31.0); Mean Corpuscular Volume 95.5 fL (78.0-98.0); Mean Platelet Volume 7.4 fL (7.4-10.4); Platelet Count 335 thou/uL (130-400); RBC Distribution Width 12.2 % (11.5-14.5); Red Blood Cell (RBC) Count 2.35 mill/uL (4.70-6.10); White Blood Cell (WBC) Count 16.6 thou/uL (4.8-10.8)
[2020-03-21 17:00] LABS: Lactic Acid 1.5 mmol/L (0.5-2.2)
[2020-03-21 17:03] LABS: Anion Gap 11 mmol/L (10-20); BUN (Urea Nitrogen) 20 mg/dL (8.4-25.7); Calc. Creatinine Clearance 76 mL/min (70-130); Calcium 8.1 mg/dL (7.8-10.44); Carbon Dioxide 22 mmol/L (23-31); Chloride 106 mmol/L (98-107); Estimated GFR-MDRD Greater than 90; Glucose 132 mg/dL (83-110); Potassium 3.6 mmol/L (3.5-5.1); Sodium 135 mmol/L (136-145)
[2020-03-21 17:05] LABS: Troponin I 0.043 ng/mL (< 0.028)
--- NOTE | 2020-03-21 17:51 | RAD ---
PORTABLE CHEST: 03/21/20 PROVIDED CLINICAL HISTORY: Shortness of breath. FINDINGS: Examination is rotated, limiting assessment. Cardiac silhouette is likely within normal limits. There is interval development of bilateral perihilar air space disease, along with interstitial thickening and pulmonary vascular congestion. There is no definite pleural fluid or pneumothorax apparent. IMPRESSION: Findings suggesting congestive failure and alveolar edema. Pneumonia could have a similar appearance. POS: CORINNE
[2020-03-21] MEDS ORDERED: Furosemide 40 MG/4 ML VIAL SLOW IVP SCH (18:00)
[2020-03-21] MEDS: MEROPENEM 1 GM/50 ML 1 GM in Premix Bag 1 BAG IVPB SCH (19:19)
[2020-03-21] MEDS: Polyethylene Glycol 3350 17 GM Packet PO SCH (20:21)
[2020-03-21] MEDS: Metoprolol Tartrate 5 MG/5 ML VIAL IVP SCH (20:21)
[2020-03-21] MEDS: Pantoprazole 40 MG VIAL IVP SCH (20:21)
[2020-03-21] MEDS: Tamsulosin HCl 0.4 MG CAP PO SCH (20:21)
[2020-03-22] MEDS: MEROPENEM 1 GM/50 ML 1 GM in Premix Bag 1 BAG IVPB SCH ×3 (01:52→17:13)
[2020-03-22 04:36] LABS: Anion Gap 12 mmol/L (10-20); BUN (Urea Nitrogen) 17 mg/dL (8.4-25.7); Calc. Creatinine Clearance 69 mL/min (70-130); Calcium 7.7 mg/dL (7.8-10.44); Carbon Dioxide 23 mmol/L (23-31); Chloride 101 mmol/L (98-107); Estimated GFR-MDRD 86; Glucose 239 mg/dL (83-110); Magnesium 1.7 mg/dL (1.6-2.6); Sodium 133 mmol/L (136-145)
[2020-03-22 04:39] LABS: Potassium 2.9 mmol/L (3.5-5.1)
[2020-03-22] MEDS ORDERED: Potassium Chloride 40 MEQ in Sodium Chloride 0.9% 250 ML 250 ML IVPB SCH (05:00)
[2020-03-22 05:03] LABS: Band 6 % (5-11); Eosinophils 2 % (0-10); Hemoglobin 7.7 g/dL (14.0-18.0); Lymphocytes 6 % (21-51); MDiff Complete? YES; Mean Corpuscular HGB CONC 34.9 g/dL (32.0-36.0); Mean Corpuscular Hemoglobin 33.1 pg (27.0-31.0); Mean Platelet Volume 7.8 fL (7.4-10.4); Monocytes 7 % (0-10); Neutrophil 79 % (42-75); Platelet Count 364 thou/uL (130-400); Platelet Morphology Comment Appears Adequate; Polychromasia SLIGHT = 2-3 cells (100X) (0-2/hpf); RBC Distribution Width 12.1 % (11.5-14.5); Red Blood Cell (RBC) Count 2.31 mill/uL (4.70-6.10); White Blood Cell (WBC) Count 14.7 thou/uL (4.8-10.8)
[2020-03-22] MEDS: Metoprolol Tartrate 5 MG/5 ML VIAL IVP SCH ×4 (05:23→20:44)
[2020-03-22] MEDS ORDERED: Magnesium Sulfate 4 GM in Sodium Chloride 0.9% 250 ML 250 ML IVPB SCH (08:45)
[2020-03-22] MEDS: Dextrose 5 %-0.45 % NaCl 1,000 ML IV SCH (08:51)
[2020-03-22] MEDS: Pantoprazole 40 MG VIAL IVP SCH ×2 (08:58→20:36)
[2020-03-22] MEDS: Cyanocobalamin (Vitamin B-12) 1,000 MCG TAB PO SCH (08:58)
[2020-03-22] MEDS: Folic Acid 1 MG TAB PO SCH (08:58)
[2020-03-22] MEDS: Multivit, Therapeutic 1 TAB PO SCH (08:58)
[2020-03-22] MEDS ORDERED: Potassium Phosphate 15 MMOL, Magnesium Sulfate 4 GM in Sodium Chloride 0.9% 250 ML 250 ML IVPB SCH (09:00)
[2020-03-22] MEDS ORDERED: Metoprolol Tartrate 5 MG/5 ML VIAL IVP SCH (10:00)
[2020-03-22] MEDS ORDERED: Diltiazem 125 MG in Sodium Chloride 0.9% 100 ML IVPB SCH (12:00)
[2020-03-22] MEDS: D5 1/2 NS w/40 mEq KCL 1,000 ML IV SCH (12:02)
--- NOTE | 2020-03-22 12:54 | PDOC.HOSPP ---
- Subjective Encounter Date: 03/22/20 Encounter Time: 11:45 non-verbal Subjective: Patient seen and examined for gen weakness/GI bleed. Somnolent with intermittent confusion. No overnight events - Objective Vital Signs & Weight: Vital Signs (12 hours) Temp Pulse Resp BP Pulse Ox 03/22/20 12:05 97.8 F 94 18 124/60 94 L 03/22/20 10:37 140 H 114/69 03/22/20 08:50 97.7 F 98 20 121/58 L 96 03/22/20 04:04 96 03/22/20 04:00 98.8 F 135 H 18 111/66 96 Weight Weight 174 lb 2.643 oz Most Recent Monitor Data Heart Rate from ECG 109 NIBP 137/69 NIBP BP-Mean 91 Respiration from ECG 24 SpO2 96 I&O: 03/21/20 03/22/20 03/23/20 06:59 06:59 06:59 Intake Total 1040 1698 Output Total 700 3260 Balance 340 -1562 Result Diagrams: 03/22/20 03:37 03/22/20 03:37 Additional Labs: Laboratory Tests 03/22/20 03/22/20 03:37 03:37 C-Reactive Protein 18.15 H B-Natriuretic Peptide 456.9 H Laboratory Tests 03/22/20 03:37 Magnesium 1.7 EKG Reviewed by me: Yes (SR with int Afib with RVR) Hospitalist ROS - Review of Systems ROS unobtainable: due to mental status - Medication Medications: Active Medications Generic Name Dose Route Start Last Admin Trade Name Freq PRN Reason Stop Dose Admin Acetaminophen/Codeine Phosphate 1 tab 03/18/20 17:14 03/21/20 04:58 Tylenol #3 PO 1 tab Q6H PRN Administration Moderate Pain (4-6) Cyanocobalamin 1,000 mcg 03/22/20 09:00 03/22/20 08:58 Vitamin B-12 PO 1,000 mcg DAILY MYRIAM Administration Folic Acid 1 mg 03/22/20 09:00 03/22/20 08:58 Folvite PO 1 mg DAILY MYRIAM Administration Meropenem 1 gm/ Device 50 mls @ 100 mls/hr 03/21/20 18:00 03/22/20 10:34 IVPB 50 mls 0200,1000,1800 MYRIAM Administration Potassium Chloride/Dextrose/Sod Cl 1,000 mls @ 50 mls/hr 03/22/20 08:45 03/22 12:02 D5 1/2 Ns W/40 Meq Kcl IV 1,000 mls .Q20H MYRIAM Administration Potassium Phosphate 15 mmol/ 263 mls @ 64.461 mls/hr 03/22/20 09:00 03/22/20 10:31 Magnesium Sulfate 4 gm/ Sodium IVPB 03/22/20 13:00 263 mls Chloride NOW MYRIAM Administration Multivitamins 1 tab 03/22/20 09:00 03/22/20 08:58 Theragran PO 1 tab DAILY MYRIAM Administration Pantoprazole Sodium 40 mg 03/21/20 21:00 03/22/20 08:58 Protonix IVP 40 mg Q12HR MYRIAM Administration Polyethylene Glycol 17 gm 03/19/20 21:00 03/21/20 20:21 Miralax PO Not Given HS MYRIAM Tamsulosin HCl 0.4 mg 03/18/20 21:00 03/21/20 20:21 Flomax PO Not Given HS MYRIAM - Exam General Appearance: ill appearing Heart: RRR, no rubs Respiratory: no wheezes, rhonchi Gastrointestinal: soft, no guarding, no rigidity Extremities: no cyanosis Psychiatric: somnolent Hosp A/P - Plan plan discussed w/ family (spouse - code status - full code per pt's wishes), DVT proph w/SCDs Toxic Metaolic Encephalopathy - multifatorial - POA Swallow dysfunction with possible Aspiration Pneumonia New onset Afib with RVR - not a anticoag candidate UGI bleeding due to gastric ulcer s/p hemoclip Erosive esophagitis Acute blood loss anemia Hypotension due to GI bleeding - improved Urinary retention requiring banks catheter placement Recent humeral fracture BPH Hyponatremia/Hypokalemia/Hypomagnesemia PLAN: Change IV Metoprolol to 2.5 q4h Beltran water protocol per RN PRIOR AUTHORIZATION MBS on Tuesday - Will need COVID testing Replace electrolytes Cont IV Meropenem Cont IV Protonix Cont other meds as above AM labs r/o DVT CXR today
--- NOTE | 2020-03-22 13:21 | RAD ---
PORTABLE CHEST: DATE: 03/22/2020. Provided CLINICAL HISTORY: Shortness of breath. FINDINGS: Comparison is made with the study dated 03/21/2020. There is interval improvement in left mid and lowe r lung zone airspace disease. Improved but persistent right mid lung airspace disease. No pleural f luid or pneumothorax apparent. Cardiac silhouette again appears prominent. IMPRESSION: Improved bilateral airspace disease, with persistent consolidation involving the right mid lung zone. POS: CORINNE
[2020-03-22 13:33] LABS: CKMB 1.6 ng/mL (0-6.6)
--- NOTE | 2020-03-22 17:25 | ULT ---
BILATERAL LOWER EXTREMITY VENOUS DOPPLER 03/22/20 PROVIDED CLINICAL HISTORY: Bilateral lower extremity pain. FINDINGS: Doshi scale and color Doppler sonography with spectral analysis was performed of the common femoral, f emoral, popliteal, right posterior tibial, and greater saphenous/profunda femoral veins bilaterally. The left posterior tibial vein is not seen in its mid and distal portions. The visualized venous stru ctures of each lower extremity demonstrate a normal sonographic appearance. IMPRESSION: No sonographic evidence for lower extremity deep venous thrombosis with limitations as described. POS: CORINNE
[2020-03-22] MEDS: Tamsulosin HCl 0.4 MG CAP PO SCH (20:36)
[2020-03-22] MEDS: Polyethylene Glycol 3350 17 GM Packet PO SCH (20:37)
[2020-03-23] MEDS: Metoprolol Tartrate 5 MG/5 ML VIAL IVP SCH ×3 (03:02→09:58)
[2020-03-23] MEDS: MEROPENEM 1 GM/50 ML 1 GM in Premix Bag 1 BAG IVPB SCH ×3 (03:03→18:03)
[2020-03-23 04:17] LABS: #Eosinphils 0.2 thou/uL (0.0-0.7); #Lymphocytes 0.9 thou/uL (1.20-3.40); #Monocytes 1.4 thou/uL (0.11-0.59); %Basophils 0.2 % (0.0-1.0); %Eosinophils 1.6 % (0.0-10.0); %Lymphocytes 6.1 % (21.0-51.0); %Monocytes 9.8 % (0.0-10.0); %Neutrophils 82.3 % (42.0-75.0); Hemoglobin 7.7 g/dL (14.0-18.0); Mean Corpuscular HGB CONC 34.3 g/dL (32.0-36.0); Mean Corpuscular Hemoglobin 32.4 pg (27.0-31.0); Mean Corpuscular Volume 94.4 fL (78.0-98.0); Mean Platelet Volume 7.1 fL (7.4-10.4); Platelet Count 445 thou/uL (130-400); Red Blood Cell (RBC) Count 2.39 mill/uL (4.70-6.10); White Blood Cell (WBC) Count 14.5 thou/uL (4.8-10.8)
[2020-03-23 04:33] LABS: Phosphorus 2.2 mg/dL (2.3-4.7)
[2020-03-23 04:37] LABS: Anion Gap 11 mmol/L (10-20); BUN (Urea Nitrogen) 16 mg/dL (8.4-25.7); Calc. Creatinine Clearance 76 mL/min (70-130); Calcium 7.6 mg/dL (7.8-10.44); Carbon Dioxide 22 mmol/L (23-31); Chloride 105 mmol/L (98-107); Estimated GFR-MDRD Greater than 90; Glucose 132 mg/dL (83-110); Magnesium 2.2 mg/dL (1.6-2.6); Potassium 3.9 mmol/L (3.5-5.1); Sodium 134 mmol/L (136-145)
[2020-03-23] MEDS: D5 1/2 NS w/40 mEq KCL 1,000 ML IV SCH ×2 (06:01→06:02)
[2020-03-23] MEDS ORDERED: Amiodarone 200 MG TAB PO SCH (09:00)
[2020-03-23] MEDS: Acetaminophen/Codeine 30-300mg Tablet PO PRN (09:43)
[2020-03-23] MEDS: Folic Acid 1 MG TAB PO SCH (09:43)
[2020-03-23] MEDS: Multivit, Therapeutic 1 TAB PO SCH ×2 (09:43→10:37)
[2020-03-23] MEDS: Pantoprazole 40 MG VIAL IVP SCH (09:43)
[2020-03-23] MEDS: Cyanocobalamin (Vitamin B-12) 1,000 MCG TAB PO SCH ×2 (09:44→10:37)
[2020-03-23] MEDS ORDERED: Potassium Phosphate 15 MMOL in Sodium Chloride 0.9% 250 ML 250 ML IVPB SCH (10:00)
--- NOTE | 2020-03-23 10:53 | CON ---
DATE OF CONSULTATION: HISTORY OF PRESENT ILLNESS: The patient is an 85-year-old gentleman, who presented with a GI hemorrhage and was noted to have rapid heart rate. The patient is unable to give a coherent history. He was admitted with a severe GI bleed, and underwent an emergent endoscopy procedure. The patient was monitored on telemetry when he was noted to have a rapid irregular heart rate. The patient denies having any palpitations. PAST MEDICAL HISTORY: BPH, left humerus fracture. PAST SURGICAL HISTORY: TURP. SOCIAL HISTORY: Nonsmoker. ALLERGIES: NO KNOWN DRUG ALLERGIES. PHYSICAL EXAMINATION: GENERAL: This is an ill-appearing pale gentleman, in no acute distress. VITAL SIGNS: Blood pressure 124/60. NECK: No jugular venous distention. LUNGS: Clear to auscultation. HEART: Regular rate and rhythm. Normal S1, S2. 1/6 systolic murmur. ABDOMEN: Nondistended. EXTREMITIES: Showed trace edema. LABORATORY RESULTS: Sodium 133, potassium 2.9, chloride 101, bicarbonate 23, BUN 17, creatinine 0.84, glucose 239. White blood cell count 14.7, hemoglobin 7.7, hematocrit 22.0, platelets were 364. Telemetry monitoring revealed paroxysmal atrial fibrillation. Echocardiogram normal left ventricular ejection fraction of 60% to 65% with severe pulmonary hypertension. IMPRESSION: 1. New onset atrial fibrillation. 2. Gastrointestinal hemorrhage. 3. Severe tricuspid regurgitation. 4. Pulmonary hypertension. 5. This patient has GI hemorrhage. The patient had a short run of atrial fibrillation. The patient is not an appropriate patient for anticoagulation. He has severe pulmonary hypertension. The patient is being treated with IV Lopressor to control his heart rate. I will follow this patient with you through his hospitalization. Job ID: [id number] [facility]
--- NOTE | 2020-03-23 11:02 | PDOC.HOSPP ---
- Subjective Encounter Date: 03/23/20 Encounter Time: 09:30 non-verbal (confused) Subjective: Patient seen and examined for Sepsis. Intermittent confusion. No overnight events - Objective Vital Signs & Weight: Vital Signs (12 hours) Temp Pulse Resp BP Pulse Ox 03/23/20 10:06 120 H 126/69 03/23/20 08:05 93 L 03/23/20 08:00 98.0 F 119 H 25 H 130/65 93 L 03/23/20 04:03 98.2 F 95 16 134/59 L 97 03/23/20 00:23 96 Weight Weight 174 lb 2.643 oz Most Recent Monitor Data Heart Rate from ECG 109 NIBP 137/69 NIBP BP-Mean 91 Respiration from ECG 24 SpO2 96 I&O: 03/22/20 03/23/20 03/24/20 06:59 06:59 06:59 Intake Total 1698 1450 Output Total 3260 950 Balance -1562 500 Result Diagrams: 03/23/20 04:06 03/23/20 04:06 Additional Labs: Laboratory Tests 03/23/20 04:06 Phosphorus 2.2 L Radiology Reviewed by me: Yes (CXR - Rt sided infiltrate) EKG Reviewed by me: Yes (Tele SR with int Afib) Hospitalist ROS - Review of Systems ROS unobtainable: due to mental status - Medication Medications: Active Medications Generic Name Dose Route Start Last Admin Trade Name Freq PRN Reason Stop Dose Admin Acetaminophen/Codeine Phosphate 1 tab 03/18/20 17:14 03/23/20 09:43 Tylenol #3 PO 1 tab Q6H PRN Administration Moderate Pain (4-6) Amiodarone HCl 400 mg 03/23/20 09:00 03/23/20 09:58 Cordarone PO 200 mg BID MYRIAM Administration Cyanocobalamin 1,000 mcg 03/22/20 09:00 03/23/20 10:37 Vitamin B-12 PO Not Given DAILY MYRIAM Folic Acid 1 mg 03/22/20 09:00 03/23/20 09:43 Folvite PO 1 mg DAILY MYRIAM Administration Meropenem 1 gm/ Device 50 mls @ 100 mls/hr 03/21/20 18:00 03/23/20 09:58 IVPB 50 mls 0200,1000,1800 MYRIAM Administration Potassium Chloride/Dextrose/Sod Cl 1,000 mls @ 50 mls/hr 03/22/20 08:45 03/23 06:02 D5 1/2 Ns W/40 Meq Kcl IV 1,000 mls .Q20H MYRIAM Administration Metoprolol Tartrate 2.5 mg 03/22/20 14:00 03/23/20 09:58 Lopressor IVP 2.5 mg Q4H MYRIAM Administration Multivitamins 1 tab 03/22/20 09:00 03/23/20 10:37 Theragran PO Not Given DAILY MYRIAM Pantoprazole Sodium 40 mg 03/21/20 21:00 03/23/20 09:43 Protonix IVP 40 mg Q12HR MYRIAM Administration Polyethylene Glycol 17 gm 03/19/20 21:00 03/22/20 20:37 Miralax PO Not Given HS MYRIAM Tamsulosin HCl 0.4 mg 03/18/20 21:00 03/22/20 20:36 Flomax PO 0.4 mg HS MYRIAM Administration - Exam General Appearance: ill appearing Heart: RRR, no gallops Respiratory: no wheezes, rales, rhonchi Gastrointestinal: soft, non-tender, normal bowel sounds Extremities: no cyanosis Psychiatric: somnolent Hosp A/P - Plan plan discussed w/ family, DVT proph w/SCDs Toxic Metabolic Encephalopathy Swallow dysfunction with Aspiration Pneumonia New onset Afib with RVR - not a anticoag candidate UGI bleeding due to gastric ulcer s/p hemoclip Erosive esophagitis Acute blood loss anemia Hypotension due to GI bleeding - improved Urinary retention requiring banks catheter placement Recent humeral fracture BPH Hyponatremia/Hypokalemia/Hypomagnesemia/Hypophosphatemia PLAN: Started on Amiodarone Cont IV Metoprolol 2.5 q4h while NPO Beltran water protocol per PHYSICIAN EXECUTIVE MBS on Tuesday - Will need COVID testing Replace phosphorus Cont IV Meropenem for Aspiration Pneumonia Cont IV Protonix Cont other meds as above AM labs DC IVF when tolerating PO
[2020-03-23 11:22] LABS: ALT (SGPT) 56 U/L (8-55); AST (SGOT) 56 U/L (5-34); Albumin 2.8 g/dL (3.4-4.8); Alkaline Phosphatase 95 U/L (40-110); Bilirubin, Direct 0.4 mg/dL (0.1-0.3); Bilirubin, Total 0.7 mg/dL (0.2-1.2); Protein, Total 5.3 g/dL (5.8-8.1)
[2020-03-23] MEDS ORDERED: Amiodarone 150 MG, Admixture Fee 1 EACH in Dextrose 5% in Water 100 ML IVPB SCH (11:45)
[2020-03-23 12:07] LABS: SARS-CoV-2 MS2 Positive; SARS-CoV-2 N Gene Negative; SARS-CoV-2 S Gene Negative; SARS-CoV-2 orf1ab Negative
[2020-03-23] MEDS: Amiodarone 450 MG, Admixture Fee 1 EACH in Dextrose 5% in Water 250 ML IVPB SCH ×2 (12:37→21:38)
[2020-03-24] MEDS: Tamsulosin HCl 0.4 MG CAP PO SCH ×2 (00:19→21:18)
[2020-03-24] MEDS: Polyethylene Glycol 3350 17 GM Packet PO SCH ×2 (00:19→21:18)
[2020-03-24] MEDS: Pantoprazole 40 MG VIAL IVP SCH ×3 (00:23→21:18)
[2020-03-24] MEDS: MEROPENEM 1 GM/50 ML 1 GM in Premix Bag 1 BAG IVPB SCH ×3 (02:41→18:58)
[2020-03-24 04:52] LABS: Anion Gap 13 mmol/L (10-20); BUN (Urea Nitrogen) 15 mg/dL (8.4-25.7); Calc. Creatinine Clearance 76 mL/min (70-130); Calcium 7.9 mg/dL (7.8-10.44); Carbon Dioxide 20 mmol/L (23-31); Chloride 104 mmol/L (98-107); Estimated GFR-MDRD Greater than 90; Glucose 127 mg/dL (83-110); Potassium 4.2 mmol/L (3.5-5.1); Sodium 133 mmol/L (136-145)
[2020-03-24 05:24] LABS: Band 9 % (5-11); Eosinophils 1 % (0-10); Hemoglobin 7.9 g/dL (14.0-18.0); Lymphocytes 7 % (21-51); MDiff Complete? YES; Mean Corpuscular HGB CONC 33.8 g/dL (32.0-36.0); Mean Corpuscular Hemoglobin 31.6 pg (27.0-31.0); Mean Corpuscular Volume 93.5 fL (78.0-98.0); Mean Platelet Volume 7.2 fL (7.4-10.4); Monocytes 10 % (0-10); Myelocyte 2 % (0-0); Neutrophil 71 % (42-75); Nucleated RBC 1 % (0); Platelet Count 525 thou/uL (130-400); Platelet Morphology Comment Appears Increased; Polychromasia SLIGHT = 2-3 cells (100X) (0-2/hpf); RBC Distribution Width 12.2 % (11.5-14.5); Red Blood Cell (RBC) Count 2.49 mill/uL (4.70-6.10); White Blood Cell (WBC) Count 16.5 thou/uL (4.8-10.8)
[2020-03-24] MEDS: Cyanocobalamin (Vitamin B-12) 1,000 MCG TAB PO SCH (09:37)
[2020-03-24] MEDS: Folic Acid 1 MG TAB PO SCH (09:38)
[2020-03-24] MEDS: Multivit, Therapeutic 1 TAB PO SCH (09:38)
--- NOTE | 2020-03-24 09:46 | PDOC.HOSPP ---
- Subjective Encounter Date: 03/24/20 Encounter Time: 09:42 Subjective: alert, conversational, moderate dementia - Objective Vital Signs & Weight: Vital Signs (12 hours) Temp Pulse Resp BP Pulse Ox 03/24/20 08:40 97.6 F 85 20 131/63 92 L 03/24/20 05:52 97.9 F 94 24 H 134/63 94 L 03/24/20 00:00 99.4 F 95 24 H 141/66 H 92 L Weight Weight 174 lb 2.643 oz Most Recent Monitor Data Heart Rate from ECG 109 NIBP 137/69 NIBP BP-Mean 91 Respiration from ECG 24 SpO2 96 I&O: 03/23/20 03/24/20 03/25/20 06:59 06:59 06:59 Intake Total 1450 1670 Output Total 950 1500 Balance 500 170 Result Diagrams: 03/24/20 03:36 03/24/20 03:36 Hospitalist ROS - Medication Medications: Active Medications Generic Name Dose Route Start Last Admin Trade Name Freq PRN Reason Stop Dose Admin Acetaminophen/Codeine Phosphate 1 tab 03/18/20 17:14 03/23/20 09:43 Tylenol #3 PO 1 tab Q6H PRN Administration Moderate Pain (4-6) Cyanocobalamin 1,000 mcg 03/22/20 09:00 03/24/20 09:37 Vitamin B-12 PO Not Given DAILY MYRIAM Folic Acid 1 mg 03/22/20 09:00 03/24/20 09:38 Folvite PO Not Given DAILY MYRIAM Meropenem 1 gm/ Device 50 mls @ 100 mls/hr 03/21/20 18:00 03/24/20 02:41 IVPB 50 mls 0200,1000,1800 MYRIAM Administration Potassium Chloride/Dextrose/Sod Cl 1,000 mls @ 50 mls/hr 03/22/20 08:45 03/23 06:02 D5 1/2 Ns W/40 Meq Kcl IV 1,000 mls .Q20H MYRIAM Administration Amiodarone HCl 450 mg/ 259 mls @ 0 mls/hr 03/23/20 11:45 03/23/20 21:38 Miscellaneous Medication 1 IVPB 259 mls each/ Dextrose/Water INF MYRIAM Administration Protocol As Directed Multivitamins 1 tab 03/22/20 09:00 03/24/20 09:38 Theragran PO Not Given DAILY MYRIAM Pantoprazole Sodium 40 mg 03/21/20 21:00 03/24/20 08:53 Protonix IVP 40 mg Q12HR MYRIAM Administration Polyethylene Glycol 17 gm 03/19/20 21:00 03/24/20 00:19 Miralax PO Not Given HS MYRIAM Tamsulosin HCl 0.4 mg 03/18/20 21:00 03/24/20 00:19 Flomax PO Not Given HS MYRIAM - Exam General Appearance: awake alert Neck: no JVD Heart: RRR, no murmur Respiratory - other findings: scattered rhonchi Gastrointestinal: soft, non-tender, normal bowel sounds Extremities: no edema Hosp A/P (1) Anemia due to blood loss, acute Code(s): D62 - ACUTE POSTHEMORRHAGIC ANEMIA Status: Acute (2) GI bleed due to NSAIDs Code(s): K92.2 - GASTROINTESTINAL HEMORRHAGE, UNSPECIFIED; T39.395A - ADVERSE EFFECT OF NONSTEROIDAL ANTI-INFLAMMATORY DRUGS, INIT Status: Acute (3) PUD (peptic ulcer disease) Code(s): K27.9 - PEPTIC ULC, SITE UNSP, UNSP AC OR CHR, W/O HEMOR OR PERF Status: Acute (4) Atrial fibrillation with RVR Code(s): I48.91 - UNSPECIFIED ATRIAL FIBRILLATION Status: Acute (5) Aspiration pneumonia Code(s): J69.0 - PNEUMONITIS DUE TO INHALATION OF FOOD AND VOMIT Status: Acute Qualifiers: Laterality: bilateral Lung location: lower lobe of lung (6) Encephalopathy Code(s): G93.40 - ENCEPHALOPATHY, UNSPECIFIED Status: Acute - Plan cont iv PPI q12h serial H&H, transfuse prn cont iv amiodarone, discuss with cardiology update spouse
--- NOTE | 2020-03-24 11:14 | RAD ---
Modified barium swallow HISTORY: Dysphagia. Feeding difficulties. FINDINGS: Exam was performed in conjunction with speech pathology with multiple consistencies. With all consistencies, there is early spill of contrast with deep penetration and aspiration, partia lly cleared by the patient with coughing. Extensive residue with poor clearance upon secondary swallowing. The esophagus below the level of the hypopharynx was not evaluated. Fluoroscopy time 0.7 minutes. Please see separate detailed report from speech pathology.
[2020-03-24] MEDS: Amiodarone 450 MG, Admixture Fee 1 EACH in Dextrose 5% in Water 250 ML IVPB SCH (12:41)
[2020-03-24] MEDS: D5 1/2 NS w/40 mEq KCL 1,000 ML IV SCH (12:41)
--- NOTE | 2020-03-25 02:05 | PDOC.EVN ---
Event Note - Event Note Event Note: Nurse called. Patient afib rvr sustaining 120s, BP 170s-180s, on amiodarone drip. Gave lopressor 5mg IVP x 1 dose. morning labs, electrolytes WNL.
[2020-03-25] MEDS: MEROPENEM 1 GM/50 ML 1 GM in Premix Bag 1 BAG IVPB SCH ×3 (02:15→17:27)
[2020-03-25] MEDS ORDERED: Metoprolol Tartrate 5 MG/5 ML VIAL IVP SCH (02:15)
[2020-03-25] MEDS: D5 1/2 NS w/40 mEq KCL 1,000 ML IV SCH (02:21)
[2020-03-25] MEDS: Cyanocobalamin (Vitamin B-12) 1,000 MCG TAB PO SCH (07:57)
[2020-03-25] MEDS: Folic Acid 1 MG TAB PO SCH (07:57)
[2020-03-25] MEDS: Multivit, Therapeutic 1 TAB PO SCH (07:57)
[2020-03-25] MEDS: Pantoprazole 40 MG VIAL IVP SCH ×2 (08:16→20:13)
--- NOTE | 2020-03-25 11:06 | PDOC.HOSPP ---
- Subjective Encounter Date: 03/25/20 Encounter Time: 11:04 Subjective: alert, pleasantly confused - Objective Vital Signs & Weight: Vital Signs (12 hours) Temp Pulse Resp BP Pulse Ox 03/25/20 08:00 98.3 F 87 24 H 177/77 H 95 03/25/20 03:33 98.3 F 82 23 H 155/71 H 94 L Weight Weight 174 lb 2.643 oz Most Recent Monitor Data Heart Rate from ECG 109 NIBP 137/69 NIBP BP-Mean 91 Respiration from ECG 24 SpO2 96 I&O: 03/24/20 03/25/20 03/26/20 06:59 06:59 06:59 Intake Total 1670 1550.4 Output Total 1500 1800 Balance 170 -249.6 Result Diagrams: 03/24/20 03:36 03/24/20 03:36 Hospitalist ROS - Medication Medications: Active Medications Generic Name Dose Route Start Last Admin Trade Name Freq PRN Reason Stop Dose Admin Acetaminophen/Codeine Phosphate 1 tab 03/18/20 17:14 03/23/20 09:43 Tylenol #3 PO 1 tab Q6H PRN Administration Moderate Pain (4-6) Cyanocobalamin 1,000 mcg 03/22/20 09:00 03/25/20 07:57 Vitamin B-12 PO Not Given DAILY [facility] Folic Acid 1 mg 03/22/20 09:00 03/25/20 07:57 Folvite PO Not Given DAILY [facility] Meropenem 1 gm/ Device 50 mls @ 100 mls/hr 03/21/20 18:00 03/25/20 02:15 IVPB 50 mls 0200,1000,1800 MYRIAM Administration Potassium Chloride/Dextrose/Sod Cl 1,000 mls @ 50 mls/hr 03/22/20 08:45 03/25 02:21 D5 1/2 Ns W/40 Meq Kcl IV 1,000 mls .Q20H MYRIAM Administration Amiodarone HCl 450 mg/ 259 mls @ 0 mls/hr 03/23/20 11:45 03/24/20 12:41 Miscellaneous Medication 1 IVPB 259 mls each/ Dextrose/Water INF MYRIAM Administration Protocol As Directed Multivitamins 1 tab 03/22/20 09:00 03/25/20 07:57 Theragran PO Not Given DAILY MYRIAM Pantoprazole Sodium 40 mg 03/21/20 21:00 03/25/20 08:16 Protonix IVP 40 mg Q12HR MYRIAM Administration Polyethylene Glycol 17 gm 03/19/20 21:00 03/24/20 21:18 Miralax PO Not Given HS MYRIAM Tamsulosin HCl 0.4 mg 03/18/20 21:00 03/24/20 21:18 Flomax PO Not Given HS MYRIAM - Exam General Appearance: awake alert Neck: no JVD Heart: RRR, no murmur Respiratory: CTAB Gastrointestinal: soft, non-distended, normal bowel sounds Extremities: no edema Hosp A/P (1) Anemia due to blood loss, acute Code(s): D62 - ACUTE POSTHEMORRHAGIC ANEMIA Status: Acute (2) GI bleed due to NSAIDs Code(s): K92.2 - GASTROINTESTINAL HEMORRHAGE, UNSPECIFIED; T39.395A - ADVERSE EFFECT OF NONSTEROIDAL ANTI-INFLAMMATORY DRUGS, INIT Status: Acute (3) PUD (peptic ulcer disease) Code(s): K27.9 - PEPTIC ULC, SITE UNSP, UNSP AC OR CHR, W/O HEMOR OR PERF Status: Acute (4) Atrial fibrillation with RVR Code(s): I48.91 - UNSPECIFIED ATRIAL FIBRILLATION Status: Acute (5) Aspiration pneumonia Code(s): J69.0 - PNEUMONITIS DUE TO INHALATION OF FOOD AND VOMIT Status: Acute Qualifiers: Laterality: bilateral Lung location: lower lobe of lung (6) Encephalopathy Code(s): G93.40 - ENCEPHALOPATHY, UNSPECIFIED Status: Acute (7) Dysphagia Code(s): R13.10 - DYSPHAGIA, UNSPECIFIED Status: Acute - Plan cont iv PPI q12h serial H&H, transfuse prn cont iv amiodarone, discuss with cardiology discussed aspiration with spouse, call GI for PEG
--- NOTE | 2020-03-25 16:02 | PDOC.FMACP ---
Advance Care Planning - Problem (1) Palliative care encounter Status: Acute Code(s): Z51.5 - ENCOUNTER FOR PALLIATIVE CARE (2) Anemia due to blood loss, acute Status: Acute Code(s): D62 - ACUTE POSTHEMORRHAGIC ANEMIA (3) Aspiration pneumonia Status: Acute Code(s): J69.0 - PNEUMONITIS DUE TO INHALATION OF FOOD AND VOMIT Qualifiers: Laterality: bilateral Lung location: lower lobe of lung (4) Atrial fibrillation with RVR Status: Acute Code(s): I48.91 - UNSPECIFIED ATRIAL FIBRILLATION (5) Dysphagia Status: Acute Code(s): R13.10 - DYSPHAGIA, UNSPECIFIED (6) Encephalopathy Status: Acute Code(s): G93.40 - ENCEPHALOPATHY, UNSPECIFIED - Note Participants: family, communications writer, palliative care Summary: Palliative Care addressed Advanced Care Planning at the bedside of patient, with his , filing or registry clerk from the patient [facility], (Dr Cline had also addressed) allowed opportunity to decline. The diagnosis, prognosis and goals of care were discussed. Appropriate forms and documentation to accomplish the goals of care were discussed. All questions were answered. Elected to transition to DNAR as well as complete OOHDNAR. Discussed option of PEG at length weighing risk verses benefit for patient. Dr Cline placed GI consult to further address PEG. Mrs Rowell is open to PEG or diet with risk secondary to continued decline. She is concerned in relation to patient confusion and potentially "pulling the PEG" out. Please also refer to [employer] forming process line worker notes in note section. Time Spent (mins): 20
--- NOTE | 2020-03-25 16:36 | PRG ---
DATE OF SERVICE: 03/25/2020 SUBJECTIVE: Mr. Rowell remains confused, worse than he was on presentation this week. His hemoglobin has been stable since initial presentation with no further evidence of overt bleeding from his gastric ulcer. However, he has since developed aspiration pneumonia, for which he has been treated. He underwent a modified-barium swallow exam and this demonstrated yefri aspiration with all consistencies. The family has made the decision to pursue PEG tube placement, so we were called back to consider this. OBJECTIVE: VITAL SIGNS: Temperature 96.4, pulse 84, blood pressure 159/82, 94% oxygen saturation on room air. GENERAL: An 85-year-old man, in no distress, he is confused, tangential in conversation. HEART: Regular rate and rhythm. LUNGS: Clear to auscultation bilaterally. ABDOMEN: Nondistended. Bowel sounds are present. The abdomen is soft and nontender. EXTREMITIES: No peripheral edema. LABORATORY STUDIES: Hemoglobin 7.9, WBC 16.5, and platelets 525. Sodium 133, potassium 4.2, BUN 15, and creatinine 0.77. COVID PCR was negative. ASSESSMENT AND PLAN: 1. Oropharyngeal dysphagia. 2. Aspiration pneumonia. I had a long discussion with the patient's regarding PEG tube placement including the potential benefits, but also risks of the procedure. She desires that we proceed. This is going to be important after PEG tube placement to keep an abdominal binder on and to redirect to avoid the patient pulling the tube out, which is a little bit of a concern for her. We will plan for PEG tube placement tomorrow. 3. Gastric ulcer with hemorrhage. This was treated endoscopically 1 week ago by hemoclip placement. There has been no further evidence of overt bleeding since that time. 4. Acute blood loss anemia. This was significant on presentation, but has been stable over the past week. Job ID: [id number]
[2020-03-25] MEDS ORDERED: hydrALAZINE 20 MG/ML VIAL SLOW IVP PRN (16:40)
[2020-03-25] MEDS: Amiodarone 450 MG, Admixture Fee 1 EACH in Dextrose 5% in Water 250 ML IVPB SCH (20:12)
[2020-03-25] MEDS: Polyethylene Glycol 3350 17 GM Packet PO SCH (22:22)
[2020-03-25] MEDS: Tamsulosin HCl 0.4 MG CAP PO SCH (22:22)
[2020-03-26] MEDS: MEROPENEM 1 GM/50 ML 1 GM in Premix Bag 1 BAG IVPB SCH ×3 (03:15→18:21)
[2020-03-26] MEDS: D5 1/2 NS w/40 mEq KCL 1,000 ML IV SCH ×2 (06:40→22:59)
[2020-03-26] MEDS: Cyanocobalamin (Vitamin B-12) 1,000 MCG TAB PO SCH (08:03)
[2020-03-26] MEDS: Multivit, Therapeutic 1 TAB PO SCH (08:03)
[2020-03-26] MEDS: Pantoprazole 40 MG VIAL IVP SCH ×2 (08:03→23:56)
[2020-03-26] MEDS: Folic Acid 1 MG TAB PO SCH (08:03)
[2020-03-26] MEDS ORDERED: SUGAMMADEX SODIUM 200 MG/2 ML VIAL ONE (09:12)
--- NOTE | 2020-03-26 09:34 | PDOC.HOSPP ---
- Subjective Encounter Date: 03/26/20 Encounter Time: 12:01 Subjective: post PEG.sleepy - Objective Vital Signs & Weight: Vital Signs (12 hours) Temp Pulse Resp BP Pulse Ox 03/26/20 08:00 97.4 F L 84 20 183/77 H 94 L 03/26/20 03:50 98.8 F 91 16 168/78 H 93 L Weight Admit Weight 165 lb 9.074 oz Weight 174 lb 2.643 oz Most Recent Monitor Data Heart Rate from ECG 109 NIBP 137/69 NIBP BP-Mean 91 Respiration from ECG 24 SpO2 96 I&O: 03/25/20 03/26/20 03/27/20 06:59 06:59 06:59 Intake Total 1550.4 1644 Output Total 1800 2825 Balance -249.6 -1181 Result Diagrams: 03/24/20 03:36 03/24/20 03:36 Hospitalist ROS - Medication Medications: Active Medications Generic Name Dose Route Start Last Admin Trade Name Freq PRN Reason Stop Dose Admin Acetaminophen/Codeine Phosphate 1 tab 03/18/20 17:14 03/23/20 09:43 Tylenol #3 PO 1 tab Q6H PRN Administration Moderate Pain (4-6) Cyanocobalamin 1,000 mcg 03/22/20 09:00 03/26/20 08:03 Vitamin B-12 PO Not Given DAILY [facility] Folic Acid 1 mg 03/22/20 09:00 03/26/20 08:03 Folvite PO Not Given DAILY MYRIAM Hydralazine HCl 10 mg 03/25/20 16:40 03/25/20 17:27 Apresoline SLOW IVP 10 mg Q4H PRN Administration Blood Pressure SBP>180 Meropenem 1 gm/ Device 50 mls @ 100 mls/hr 03/21/20 18:00 03/26/20 03:15 IVPB 50 mls 0200,1000,1800 MYRIAM Administration Potassium Chloride/Dextrose/Sod Cl 1,000 mls @ 50 mls/hr 03/22/20 08:45 03/26 06:40 D5 1/2 Ns W/40 Meq Kcl IV Not Given .Q20H MYRIAM Amiodarone HCl 450 mg/ 259 mls @ 0 mls/hr 03/23/20 11:45 03/25/20 20:12 Miscellaneous Medication 1 IVPB 259 mls each/ Dextrose/Water INF MYRIAM Administration Protocol As Directed Multivitamins 1 tab 03/22/20 09:00 03/26/20 08:03 Theragran PO Not Given DAILY MYRIAM Pantoprazole Sodium 40 mg 03/21/20 21:00 03/26/20 08:03 Protonix IVP 40 mg Q12HR MYRIAM Administration Polyethylene Glycol 17 gm 03/19/20 21:00 03/25/20 22:22 Miralax PO Not Given HS MYRIAM Tamsulosin HCl 0.4 mg 03/18/20 21:00 03/25/20 22:22 Flomax PO Not Given HS MYRIAM - Exam Neck: no JVD Heart: no murmur, irregular Respiratory: CTAB Gastrointestinal: soft, normal bowel sounds Gastrointestinal - other findings: PEG RUQ Extremities: 1+ LE edema Hosp A/P (1) Anemia due to blood loss, acute Code(s): D62 - ACUTE POSTHEMORRHAGIC ANEMIA Status: Acute (2) GI bleed due to NSAIDs Code(s): K92.2 - GASTROINTESTINAL HEMORRHAGE, UNSPECIFIED; T39.395A - ADVERSE EFFECT OF NONSTEROIDAL ANTI-INFLAMMATORY DRUGS, INIT Status: Acute (3) PUD (peptic ulcer disease) Code(s): K27.9 - PEPTIC ULC, SITE UNSP, UNSP AC OR CHR, W/O HEMOR OR PERF Status: Acute (4) Atrial fibrillation with RVR Code(s): I48.91 - UNSPECIFIED ATRIAL FIBRILLATION Status: Acute (5) Aspiration pneumonia Code(s): J69.0 - PNEUMONITIS DUE TO INHALATION OF FOOD AND VOMIT Status: Acute Qualifiers: Laterality: bilateral Lung location: lower lobe of lung (6) Encephalopathy Code(s): G93.40 - ENCEPHALOPATHY, UNSPECIFIED Status: Acute (7) Dysphagia Code(s): R13.10 - DYSPHAGIA, UNSPECIFIED Status: Acute - Plan post PEG- start tube feedings today transition sai meds cont tomoniter cbc,bmp willneed nuzhat vs SNF
[2020-03-26] MEDS ORDERED: PROPOFOL 200 MG/20 ML VIAL ONE (10:39)
--- NOTE | 2020-03-26 10:53 | OP ---
DATE OF PROCEDURE: 03/26/2020 PROCEDURE PERFORMED: Esophagogastroduodenoscopy with percutaneous endoscopic gastrostomy tube placement. PREOPERATIVE DIAGNOSIS: Oropharyngeal dysphagia with aspiration pneumonia. DESCRIPTION OF PROCEDURE: Informed consent was obtained. The patient was sedated with total intravenous anesthesia. The bite block was placed and the endoscope was advanced easily to the second portion of the duodenum and retroflexion was performed in the stomach. The esophagus had a mild narrowing at the Z-line at the lower esophagus, which the scope passed through easily. There was a 5-cm hiatal hernia present. The previous ulcer in the proximal body of the stomach was noted and appears to be healing well with [address] The gastric mucosa was otherwise normal. The pylorus and first and second portions of the duodenum were normal. The stomach was fully insufflated. An appropriate site on the left ribs was palpated and transilluminated. The skin was sterilized with chlorhexidine. He received meropenem shortly before the procedure was started. The skin was anesthetized with 5 mL of 1% lidocaine. Small skin incision was performed and the catheter was placed through the abdominal wall into the stomach easily in one attempt under direct visualization. The wire was placed through the catheter and grasped with the snare and pulled out through the patient's mouth. The 20- [place]er gastrostomy tube was then placed by pull-through technique. The external bumper was placed at 3.5 cm. The antibiotic ointment was applied and this site was dressed. Finally, an abdominal binder was placed as well to help try to prevent accidental removal of the PEG tube by the patient. Air was suctioned from the stomach after second-look endoscopy showed the internal bumper to be in good position. IMPRESSION: 1. 5-cm hiatal hernia. 2. Mild distal esophageal stenosis, through which the scope passes easily through. 3. Ulcer in the proximal body appears to be healing well with [address] 4[address] Successful placement of 20-[place]er gastrostomy tube with the external bumper at 3.5 cm and the rubber internal bumper in place in the distal body of the stomach. RECOMMENDATIONS: 1. Start feeds in 12 hours. 2. Abdominal binder has been provided and placed. Job ID: [id number] MTDD
[2020-03-26] MEDS: Amiodarone 450 MG, Admixture Fee 1 EACH in Dextrose 5% in Water 250 ML IVPB SCH (12:27)
[2020-03-26 12:50] LABS: Anion Gap 12 mmol/L (10-20); BUN (Urea Nitrogen) 9 mg/dL (8.4-25.7); Calc. Creatinine Clearance 87 mL/min (70-130); Carbon Dioxide 20 mmol/L (23-31); Chloride 100 mmol/L (98-107); Estimated GFR-MDRD Greater than 90; Glucose 108 mg/dL (83-110); Potassium 4.2 mmol/L (3.5-5.1); Sodium 128 mmol/L (136-145)
[2020-03-26 15:18] LABS: #Eosinphils 0.4 thou/uL (0.0-0.7); #Lymphocytes 1.1 thou/uL (1.20-3.40); #Monocytes 1.4 thou/uL (0.11-0.59); #Neutrophils 9.6 thou/uL (1.40-6.50); %Basophils 0.1 % (0.0-1.0); %Eosinophils 3.3 % (0.0-10.0); %Lymphocytes 8.5 % (21.0-51.0); %Monocytes 11.3 % (0.0-10.0); %Neutrophils 76.8 % (42.0-75.0); Hemoglobin 8.9 g/dL (14.0-18.0); Mean Corpuscular HGB CONC 33.6 g/dL (32.0-36.0); Mean Corpuscular Hemoglobin 31.2 pg (27.0-31.0); Mean Corpuscular Volume 92.9 fL (78.0-98.0); Mean Platelet Volume 6.4 fL (7.4-10.4); Platelet Count 656 thou/uL (130-400); RBC Distribution Width 12.8 % (11.5-14.5); Red Blood Cell (RBC) Count 2.85 mill/uL (4.70-6.10); White Blood Cell (WBC) Count 12.5 thou/uL (4.8-10.8)
[2020-03-26] MEDS: Tamsulosin HCl 0.4 MG CAP PO SCH (21:07)
[2020-03-26] MEDS: Polyethylene Glycol 3350 17 GM Packet PO SCH (21:07)
[2020-03-27] MEDS: MEROPENEM 1 GM/50 ML 1 GM in Premix Bag 1 BAG IVPB SCH ×3 (02:50→17:50)
[2020-03-27] MEDS: Amiodarone 450 MG, Admixture Fee 1 EACH in Dextrose 5% in Water 250 ML IVPB SCH (03:55)
[2020-03-27] MEDS: Folic Acid 1 MG TAB PO SCH (10:24)
[2020-03-27] MEDS: Multivit, Therapeutic 1 TAB PO SCH (10:24)
[2020-03-27] MEDS: Cyanocobalamin (Vitamin B-12) 1,000 MCG TAB PO SCH (10:24)
[2020-03-27] MEDS: Pantoprazole 40 MG VIAL IVP SCH ×2 (10:24→21:50)
--- NOTE | 2020-03-27 14:28 | PDOC.HOSPP ---
- Subjective Encounter Date: 03/27/20 Encounter Time: 14:27 Subjective: confused, stable - Objective Vital Signs & Weight: Vital Signs (12 hours) Temp Pulse Pulse Pulse Resp BP BP 03/27/20 12:00 98.1 F 82 20 03/27/20 10:29 86 91 145/69 H 146/69 H 03/27/20 08:00 85 20 03/27/20 04:00 97.9 F 88 18 BP Pulse Ox Pulse Ox Pulse Ox 03/27/20 12:00 149/68 H 100 03/27/20 10:29 97 97 03/27/20 08:00 158/74 H 98 03/27/20 04:00 161/68 H 93 L Weight Admit Weight 165 lb 9.074 oz Weight 174 lb 2.643 oz Most Recent Monitor Data Heart Rate from ECG 109 NIBP 137/69 NIBP BP-Mean 91 Respiration from ECG 24 SpO2 96 I&O: 03/26/20 03/27/20 03/28/20 06:59 06:59 06:59 Intake Total 1644 1500.4 130 Output Total 2825 2250 Balance -1181 -749.6 130 Result Diagrams: 03/26/20 15:03 03/26/20 12:13 Hospitalist ROS - Medication Medications: Active Medications Generic Name Dose Route Start Last Admin Trade Name Freq PRN Reason Stop Dose Admin Acetaminophen/Codeine Phosphate 1 tab 03/18/20 17:14 03/23/20 09:43 Tylenol #3 PO 1 tab Q6H PRN Administration Moderate Pain (4-6) Cyanocobalamin 1,000 mcg 03/22/20 09:00 03/27/20 10:24 Vitamin B-12 PO 1,000 mcg DAILY MYRIAM Administration Folic Acid 1 mg 03/22/20 09:00 03/27/20 10:24 Folvite PO 1 mg DAILY MYRIAM Administration Hydralazine HCl 10 mg 03/25/20 16:40 03/25/20 17:27 Apresoline SLOW IVP 10 mg Q4H PRN Administration Blood Pressure SBP>180 Meropenem 1 gm/ Device 50 mls @ 100 mls/hr 03/21/20 18:00 03/27/20 10:25 IVPB 50 mls 0200,1000,1800 MYRIAM Administration Potassium Chloride/Dextrose/Sod Cl 1,000 mls @ 50 mls/hr 03/22/20 08:45 03/26 22:59 D5 1/2 Ns W/40 Meq Kcl IV Not Given .Q20H MYRIAM Amiodarone HCl 450 mg/ 259 mls @ 0 mls/hr 03/23/20 11:45 03/27/20 03:55 Miscellaneous Medication 1 IVPB 03/27/20 16:00 259 mls each/ Dextrose/Water INF MYRIAM Administration Protocol As Directed Multivitamins 1 tab 03/22/20 09:00 03/27/20 10:24 Theragran PO 1 tab DAILY MYRIAM Administration Pantoprazole Sodium 40 mg 03/21/20 21:00 03/27/20 10:24 Protonix IVP 40 mg Q12HR MYRIAM Administration Polyethylene Glycol 17 gm 03/19/20 21:00 03/26/20 21:07 Miralax PO Not Given HS MYRIAM Tamsulosin HCl 0.4 mg 03/18/20 21:00 03/26/20 21:07 Flomax PO Not Given HS MYRIAM - Exam Neck: no JVD Heart: RRR, no murmur Respiratory: CTAB Gastrointestinal: soft, non-distended, normal bowel sounds Gastrointestinal - other findings: PEG Extremities: no edema Hosp A/P (1) Anemia due to blood loss, acute Code(s): D62 - ACUTE POSTHEMORRHAGIC ANEMIA Status: Acute (2) GI bleed due to NSAIDs Code(s): K92.2 - GASTROINTESTINAL HEMORRHAGE, UNSPECIFIED; T39.395A - ADVERSE EFFECT OF NONSTEROIDAL ANTI-INFLAMMATORY DRUGS, INIT Status: Acute (3) PUD (peptic ulcer disease) Code(s): K27.9 - PEPTIC ULC, SITE UNSP, UNSP AC OR CHR, W/O HEMOR OR PERF Status: Acute (4) Atrial fibrillation with RVR Code(s): I48.91 - UNSPECIFIED ATRIAL FIBRILLATION Status: Acute (5) Aspiration pneumonia Code(s): J69.0 - PNEUMONITIS DUE TO INHALATION OF FOOD AND VOMIT Status: Acute Qualifiers: Laterality: bilateral Lung location: lower lobe of lung (6) Encephalopathy Code(s): G93.40 - ENCEPHALOPATHY, UNSPECIFIED Status: Acute (7) Dysphagia Code(s): R13.10 - DYSPHAGIA, UNSPECIFIED Status: Acute - Plan post PEG- start tube feedings today transition sai meds cont tomoniter cbc,bmp willneed nuzhat vs SNF NS at 30 ml/hr for hyponatremia
[2020-03-27] MEDS: Sodium Chloride 0.9% 1,000 ML IV SCH (15:22)
[2020-03-27] MEDS: Amiodarone 200 MG TAB PER TUBE SCH ×2 (15:24→21:50)
--- NOTE | 2020-03-27 17:30 | PRG ---
DATE OF SERVICE: 03/27/2020 REASON FOR CONSULTATION: Oropharyngeal dysphagia status post PEG tube placement. SUBJECTIVE: The patient did well overnight with no acute events or problems per nursing staff. He currently has the abdominal binder in place to prevent inadvertent removal of the PEG tube. The PEG tube is currently being used with tube feeds and the patient recently has been advanced to goal and tolerating goal tube feeds without difficulty. He did have some confusion surrounding the placement of the PEG tube and did not appear to recognize that it has already been placed and did perseverate on several different subjects during the course of the interview, but otherwise the patient is doing well with no acute events or problems at the current point in time. Currently, he denies any nausea, vomiting, fevers, chills, or abdominal pain. OBJECTIVE: VITAL SIGNS: Temperature 97.8, pulse 82, blood pressure 162/75, respiratory rate 20, and saturating 100% on room air. GENERAL: The patient was lying in bed, in no acute distress. Alert and oriented x2. CARDIOVASCULAR: Regular rate and rhythm. RESPIRATORY: Clear to auscultation bilaterally. ABDOMEN: Normoactive bowel sounds. Soft, nontender, and nondistended. PEG tube was seen in the left upper quadrant with no signs of skin breakdown, purulence, or increased erythema of the skin. EXTREMITIES: No cyanosis, clubbing, or edema. The external bumper was tight on the skin on initial examination, so it was loosened to approximately 1 cm distance between the skin and the external bumper using hemostats. LABORATORY DATA: No current labs are available for review. IMAGING DATA: EGD was performed on 03/26/2020, which showed a 5-cm hiatal hernia as well as mild stenosis of the distal esophagus, but was easily traversed with the standard gastroscope. Ultimately, there was a successful placement of a 20-[place]an percutaneous gastrostomy tube. ASSESSMENT AND PLAN: 1. Oropharyngeal dysphagia. The patient is presenting with oropharyngeal dysphagia with resultant aspiration pneumonia with a failed swallow study showing yefri aspiration during this hospitalization. He subsequently underwent percutaneous endoscopic gastrostomy tube placement on 03/26/2020, and is doing well in the postoperative period with no acute events or complications. Currently with tube feeds at goal and tolerating well. I would recommend continued placement of an abdominal binder given the patient's dementia status and increased likelihood of inadvertent removal. I would continue to follow standard PEG tube care, and if the percutaneous endoscopic gastrostomy tube is inadvertently removed within the next 6 weeks, I would consult GI and order CT scan for evaluation with possible consultation of General Surgery if evidence of perforation. 2. Aspiration pneumonia. Continue current antibiotics. 3. Gastric ulcers with hemorrhage per esophagogastroduodenoscopy performed on 03/26/2020. The ulcer is healing with no further evidence of bleeding or high-risk stigmata. Would continue to monitor and continue proton pump inhibitor. 4. Acute blood loss anemia, currently stable. Would continue to monitor. We will sign off at this time. Please call with any questions. I would have the patient follow up in the GI Clinic on discharge for further followup of the gastric ulceration within 3 weeks of discharge. Job ID: [id number]
[2020-03-27] MEDS: Polyethylene Glycol 3350 17 GM Packet PO SCH (21:50)
[2020-03-27] MEDS: Tamsulosin HCl 0.4 MG CAP PO SCH (21:50)
[2020-03-28] MEDS: MEROPENEM 1 GM/50 ML 1 GM in Premix Bag 1 BAG IVPB SCH ×3 (02:59→17:06)
[2020-03-28] MEDS: Multivit, Therapeutic 1 TAB PO SCH (09:06)
[2020-03-28] MEDS: Amiodarone 200 MG TAB PER TUBE SCH ×3 (09:06→20:57)
[2020-03-28] MEDS: Folic Acid 1 MG TAB PO SCH (09:06)
[2020-03-28] MEDS: Cyanocobalamin (Vitamin B-12) 1,000 MCG TAB PO SCH (09:06)
[2020-03-28] MEDS: Pantoprazole 40 MG VIAL IVP SCH ×2 (09:06→20:58)
[2020-03-28] MEDS ORDERED: Metoprolol Tartrate 25 MG TAB PO SCH ×2 (10:30→21:00)
--- NOTE | 2020-03-28 14:38 | PDOC.HOSPP ---
- Subjective Encounter Date: 03/28/20 Encounter Time: 10:00 Subjective: pt up in bed oriented x2 - Objective Vital Signs & Weight: Vital Signs (12 hours) Temp Pulse Resp BP BP Pulse Ox 03/28/20 12:17 98.1 F 90 22 H 172/74 H 96 03/28/20 08:55 98.2 F 86 24 H 172/74 H 96 03/28/20 03:28 98.5 F 92 18 123/59 L 96 Weight Admit Weight 165 lb 9.074 oz Weight 174 lb 2.643 oz Most Recent Monitor Data Heart Rate from ECG 109 NIBP 137/69 NIBP BP-Mean 91 Respiration from ECG 24 SpO2 96 I&O: 03/27/20 03/28/20 03/29/20 06:59 06:59 06:59 Intake Total 1500.4 2740 30 Output Total 2250 1950 Balance -749.6 790 30 Result Diagrams: 03/26/20 15:03 03/26/20 12:13 Hospitalist ROS - Review of Systems Cardiovascular: denies: chest pain, palpitations, orthopnea, paroxysmal noc. dyspnea, edema, light headedness, other Gastrointestinal: denies: nausea, vomiting, abdominal pain, diarrhea, constipation, melena, hematochezia, other Genitourinary: denies: dysuria, frequency, incontinence, hematuria, retention, other - Medication Medications: Active Medications Generic Name Dose Route Start Last Admin Trade Name Freq PRN Reason Stop Dose Admin Acetaminophen/Codeine Phosphate 1 tab 03/18/20 17:14 03/23/20 09:43 Tylenol #3 PO 1 tab Q6H PRN Administration Moderate Pain (4-6) Amiodarone HCl 400 mg 03/27/20 15:00 03/28/20 09:06 Cordarone PER TUBE 04/02/20 23:59 400 mg TID MYRIAM Administration Cyanocobalamin 1,000 mcg 03/22/20 09:00 03/28/20 09:06 Vitamin B-12 PO 1,000 mcg DAILY MYRIAM Administration Folic Acid 1 mg 03/22/20 09:00 03/28/20 09:06 Folvite PO 1 mg DAILY MYRIAM Administration Hydralazine HCl 10 mg 03/25/20 16:40 03/25/20 17:27 Apresoline SLOW IVP 10 mg Q4H PRN Administration Blood Pressure SBP>180 Meropenem 1 gm/ Device 50 mls @ 100 mls/hr 03/21/20 18:00 03/28/20 09:06 IVPB 50 mls 0200,1000,1800 MYRIAM Administration Sodium Chloride 1,000 mls @ 30 mls/hr 03/27/20 14:30 03/27/20 15:22 Normal Saline 0.9% IV 1,000 mls .Q24H MYRIAM Administration Multivitamins 1 tab 03/22/20 09:00 03/28/20 09:06 Theragran PO 1 tab DAILY MYRIAM Administration Pantoprazole Sodium 40 mg 03/21/20 21:00 03/28/20 09:06 Protonix IVP 40 mg Q12HR MYRIAM Administration Polyethylene Glycol 17 gm 03/19/20 21:00 03/27/20 21:50 Miralax PO Not Given HS MYRIAM Tamsulosin HCl 0.4 mg 03/18/20 21:00 03/27/20 21:50 Flomax PO 0.4 mg HS MYRIAM Administration - Exam Heart: negative: RRR, no murmur, no gallops, no rubs, normal peripheral pulses, irregular, diminshed peripheral pulses, murmur present, II/IV, III/IV Respiratory - other findings: mild upper airway rhonchi noted Gastrointestinal: negative: soft, non-tender, non-distended, normal bowel sounds , no palpable masses, no hepatomegaly, no splenomegaly, no bruit, no guarding, no rigidity, tender to palpation, distended, diminished bowl sounds, voluntary guarding Extremities: 1+ LE edema Extremities - other findings: left upper ext, pulse present radial Skin: negative: normal turgor, no lesions, no rashes, tenting Hosp A/P (1) Anemia due to blood loss, acute Code(s): D62 - ACUTE POSTHEMORRHAGIC ANEMIA Status: Acute (2) Aspiration pneumonia Code(s): J69.0 - PNEUMONITIS DUE TO INHALATION OF FOOD AND VOMIT Status: Acute Qualifiers: Laterality: bilateral Lung location: lower lobe of lung (3) Atrial fibrillation with RVR Code(s): I48.91 - UNSPECIFIED ATRIAL FIBRILLATION Status: Acute (4) Dysphagia Code(s): R13.10 - DYSPHAGIA, UNSPECIFIED Status: Acute (5) Encephalopathy Code(s): G93.40 - ENCEPHALOPATHY, UNSPECIFIED Status: Acute (6) GI bleed due to NSAIDs Code(s): K92.2 - GASTROINTESTINAL HEMORRHAGE, UNSPECIFIED; T39.395A - ADVERSE EFFECT OF NONSTEROIDAL ANTI-INFLAMMATORY DRUGS, INIT Status: Acute - Plan pt initially came in for hematemesis secondary due to nsaids. pt had a fall and fx his left humerus. He under went egd and was found to have a erosive gastritis and gastric ulcer with hemoclips. He then had some urinary retention and urology was consulted. His mentation worsen and pt was aspirating. pt also was found to be in afib rvr he is not a candidate for AC due to his bleed. He underwent a peg tube placement. pt will need to go to snf. His hh is low normal. will check labs in am.
[2020-03-28 15:47] LABS: #Eosinphils 0.3 thou/uL (0.0-0.7); #Lymphocytes 0.9 thou/uL (1.20-3.40); #Monocytes 1.7 thou/uL (0.11-0.59); %Basophils 0.2 % (0.0-1.0); %Eosinophils 1.7 % (0.0-10.0); %Lymphocytes 6.2 % (21.0-51.0); %Monocytes 11.2 % (0.0-10.0); %Neutrophils 80.8 % (42.0-75.0); Hemoglobin 9.1 g/dL (14.0-18.0); Mean Corpuscular HGB CONC 32.4 g/dL (32.0-36.0); Mean Corpuscular Volume 92.4 fL (78.0-98.0); Mean Platelet Volume 6.6 fL (7.4-10.4); Platelet Count 587 thou/uL (130-400); RBC Distribution Width 13.4 % (11.5-14.5); Red Blood Cell (RBC) Count 3.04 mill/uL (4.70-6.10); White Blood Cell (WBC) Count 14.8 thou/uL (4.8-10.8)
[2020-03-28 16:09] LABS: Anion Gap 13 mmol/L (10-20); BUN (Urea Nitrogen) 15 mg/dL (8.4-25.7); Calc. Creatinine Clearance 80 mL/min (70-130); Calcium 7.9 mg/dL (7.8-10.44); Carbon Dioxide 20 mmol/L (23-31); Chloride 97 mmol/L (98-107); Estimated GFR-MDRD Greater than 90; Glucose 131 mg/dL (83-110); Magnesium 1.8 mg/dL (1.6-2.6); Potassium 4.6 mmol/L (3.5-5.1); Sodium 125 mmol/L (136-145)
[2020-03-28] MEDS: Sodium Chloride 0.9% 1,000 ML IV SCH (17:06)
[2020-03-28] MEDS: Tamsulosin HCl 0.4 MG CAP PO SCH (20:57)
[2020-03-28] MEDS: Polyethylene Glycol 3350 17 GM Packet PO SCH (20:59)
[2020-03-29] MEDS: MEROPENEM 1 GM/50 ML 1 GM in Premix Bag 1 BAG IVPB SCH ×3 (01:03→17:41)
[2020-03-29] MEDS: Pantoprazole 40 MG VIAL IVP SCH ×2 (09:12→21:32)
[2020-03-29] MEDS: Folic Acid 1 MG TAB PO SCH (09:13)
[2020-03-29] MEDS: Cyanocobalamin (Vitamin B-12) 1,000 MCG TAB PO SCH (09:14)
[2020-03-29] MEDS: Amiodarone 200 MG TAB PER TUBE SCH ×3 (09:14→21:31)
[2020-03-29] MEDS: Multivit, Therapeutic 1 TAB PO SCH (09:14)
[2020-03-29 09:52] LABS: Actual Bicarbonate (HCO3a) 20.8 mEq/L (22-28); Base Excess (BEa) -2.1 mEq/L (-2.0 to +3.0); CO2 Tension 29.2 mmHg (35.0-45.0); Calcium, Ionized (arterial) 1.07 mmol/L (1.12-1.30); Carboxyhemoglobin (COHb) 0.6 gm% (0.0-3.0); Hemoglobin (Hb) 9.7 g/dL (14.0-18.0); Potassium - ABG Lab 4.45 mmol/L (3.70-5.30); pH, Arterial 7.47 (7.35-7.45)
[2020-03-29 10:01] LABS: #Eosinphils 0.2 thou/uL (0.0-0.7); #Monocytes 1.7 thou/uL (0.11-0.59); #Neutrophils 13.1 thou/uL (1.40-6.50); %Basophils 0.2 % (0.0-1.0); %Eosinophils 1.2 % (0.0-10.0); %Lymphocytes 6.2 % (21.0-51.0); %Monocytes 10.7 % (0.0-10.0); %Neutrophils 81.8 % (42.0-75.0); Hemoglobin 8.6 g/dL (14.0-18.0); Mean Corpuscular HGB CONC 31.4 g/dL (32.0-36.0); Mean Corpuscular Hemoglobin 29.6 pg (27.0-31.0); Mean Corpuscular Volume 94.2 fL (78.0-98.0); Mean Platelet Volume 6.4 fL (7.4-10.4); Platelet Count 443 thou/uL (130-400); RBC Distribution Width 13.4 % (11.5-14.5); Red Blood Cell (RBC) Count 2.89 mill/uL (4.70-6.10)
[2020-03-29 10:03] LABS: Lactic Acid 1.6 mmol/L (0.5-2.2)
[2020-03-29 10:06] LABS: Puncture Site RRA
[2020-03-29 10:08] LABS: Anion Gap 12 mmol/L (10-20); BUN (Urea Nitrogen) 18 mg/dL (8.4-25.7); Calc. Creatinine Clearance 76 mL/min (70-130); Calcium 7.5 mg/dL (7.8-10.44); Carbon Dioxide 20 mmol/L (23-31); Chloride 97 mmol/L (98-107); Estimated GFR-MDRD Greater than 90; Glucose 139 mg/dL (83-110); Potassium 4.6 mmol/L (3.5-5.1); Sodium 124 mmol/L (136-145)
[2020-03-29 10:21] LABS: ALT (SGPT) 37 U/L (8-55); AST (SGOT) 40 U/L (5-34); Albumin 2.6 g/dL (3.4-4.8); Alkaline Phosphatase 108 U/L (40-110); Bilirubin, Direct 0.5 mg/dL (0.1-0.3); Bilirubin, Total 0.7 mg/dL (0.2-1.2); Protein, Total 5.6 g/dL (5.8-8.1)
--- NOTE | 2020-03-29 10:34 | RAD ---
CHEST 1 VIEW PORTABLE: Date: 03/29/2020 HISTORY: Labored breathing. COMPARISON: 03/22/2020. FINDINGS: Again noted is bilateral vascular congestion with some interstitial and alveolar parenchymal changes, and evidence for pleural effusion changes. No significant new process. Overall stable appearing tal edly displaced comminuted proximal humeral neck fracture. IMPRESSION: Evidence for bilateral vascular congestion and interstitial and alveolar parenchymal changes and pleu ral effusions, with little change from prior exam. POS: RRE
[2020-03-29] MEDS ORDERED: Furosemide 20 MG/2 ML VIAL SLOW IVP SCH (12:00)
--- NOTE | 2020-03-29 14:17 | PDOC.CPN ---
- Subjective Date: 03/29/20 Time: 14:22 Interval history: The pt seen and examined. No overnight events. No cardiac complaints. - Objective Allergies/Adverse Reactions: Allergies Allergy/AdvReac Type Severity Reaction Status Date / Time No Known Drug Allergies Allergy Verified 03/18/20 07:23 Visit Medications: Current Medications Acetaminophen (Tylenol) 650 mg PO Q4H PRN PRN Reason: Headache/Fever/Mild Pain (1-3) Amiodarone HCl (Cordarone) 400 mg PER TUBE TID [facility] Stop: 04/02/20 23:59 Last Admin: 03/29/20 09:14 Dose: 400 mg Amiodarone HCl (Cordarone) 400 mg PO BID [facility] Stop: 04/16/20 09:01 Amiodarone HCl (Cordarone) 200 mg PO BID [facility] Stop: 05/14/20 09:01 Amiodarone HCl (Cordarone) 200 mg PO DAILY [facility] Bisacodyl (Dulcolax) 10 mg [place] DAILYPRN PRN PRN Reason: Constipation Calcium Carbonate (Tums) 1,000 mg PO Q4H PRN PRN Reason: Heartburn or Indigestion Cyanocobalamin (Vitamin B-12) 1,000 mcg PO DAILY [facility] Last Admin: 03/29/20 09:14 Dose: 1,000 mcg Folic Acid (Folvite) 1 mg PO DAILY [facility] Last Admin: 03/29/20 09:13 Dose: 1 mg Hydralazine HCl (Apresoline) 10 mg SLOW IVP Q4H PRN PRN Reason: Blood Pressure SBP>180 Last Admin: 03/25/20 17:27 Dose: 10 mg Meropenem 1 gm/ Device 50 mls @ 100 mls/hr IVPB 0200,1000,1800 [facility] Last Admin: 03/29/20 09:13 Dose: 50 mls Multivitamins (Theragran) 1 tab PO DAILY [facility] Last Admin: 03/29/20 09:14 Dose: 1 tab Nitroglycerin (Nitrostat) 0.4 mg PO Q5MIN PRN PRN Reason: Chest Pain Ondansetron HCl (Zofran Odt) 4 mg PO Q6H PRN PRN Reason: Nausea/Vomiting Ondansetron HCl (Zofran) 4 mg IVP Q6H PRN PRN Reason: Nausea/Vomiting Last Admin: 03/29/20 09:11 Dose: 4 mg Pantoprazole Sodium (Protonix) 40 mg IVP Q12HR MYRIAM Last Admin: 03/29/20 09:12 Dose: 40 mg Polyethylene Glycol (Miralax) 17 gm PO DAILYPRN PRN PRN Reason: Constipation Polyethylene Glycol (Miralax) 17 gm PO HS [facility] Last Admin: 03/28/20 20:59 Dose: Not Given Senna/Docusate Sodium (Senokot S) 2 tab PO BIDPRN PRN PRN Reason: Constipation Sodium Chloride (Flush - Normal Saline) 10 ml IVF PRN PRN PRN Reason: Saline Flush Last Admin: 03/28/20 20:58 Dose: 10 ml Tamsulosin HCl (Flomax) 0.4 mg PO [facility] Last Admin: 03/28/20 20:57 Dose: 0.4 mg Vital Signs & Weight: Vital Signs Temp Pulse Resp BP BP Pulse Ox 03/29/20 12:00 99.9 F H 84 28 H 131/63 100 03/29/20 08:58 126/56 L 03/29/20 08:00 100.6 F H 90 30 H 149/65 H 95 03/29/20 04:39 96 03/29/20 03:11 98.8 F 89 20 134/60 97 Admit Weight 165 lb 9.074 oz Weight 169 lb 1.6 oz - Physical Exam General: other (confused) Cardiac: regular rate and rhythm, S1/S2 Lungs: decreased breath sounds Extremities: no edema - Labs Result Diagrams: 03/29/20 09:35 03/29/20 09:35 Troponin/CKMB CK-MB (CK-2) 1.6 ng/mL (0-6.6) 03/22/20 12:32 Troponin I 0.037 ng/mL (< 0.028) H 03/22/20 12:32 - Telemetry Sinus rhythms and dysrhythmias: sinus rhythm - Assessment/Plan Assessment/Plan: 1. Afib with RVR - remains in SR with Amiodarone taper dose; not a candidate for OAC or ASA for now due to his bleed 2. Anemia 2/2 NSAID induced GI bleed 3. S/p GI bleed - s/p EGD with erosive gastritis and gastric ulcer with hemoclips 4. Aspiration PNA 5. Dysphagia with s/p PEG tube placement 6. Hyponatremia MAR reviewed Pt. seen and eval. by me. I agree with the A/P by the [employer]OP[employer]. Pt. looks ill but no new complaints. Irreg/irreg. Coarse rhonch. gjmi
[2020-03-29] MEDS: Polyethylene Glycol 3350 17 GM Packet PO SCH (21:27)
[2020-03-29] MEDS: Tamsulosin HCl 0.4 MG CAP PO SCH (21:31)
[2020-03-30] MEDS: MEROPENEM 1 GM/50 ML 1 GM in Premix Bag 1 BAG IVPB SCH ×2 (01:44→09:54)
[2020-03-30] MEDS: Folic Acid 1 MG TAB PO SCH (09:52)
[2020-03-30] MEDS: Cyanocobalamin (Vitamin B-12) 1,000 MCG TAB PO SCH (09:52)
[2020-03-30] MEDS: Amiodarone 200 MG TAB PER TUBE SCH ×3 (09:52→21:57)
[2020-03-30] MEDS: Multivit, Therapeutic 1 TAB PO SCH (09:52)
[2020-03-30] MEDS: Pantoprazole 40 MG VIAL IVP SCH ×2 (09:53→21:57)
--- NOTE | 2020-03-30 12:40 | PDOC.HOSPP ---
- Subjective Encounter Date: 03/29/20 Encounter Time: 10:00 Subjective: pt very drowsy arousable. - Objective Vital Signs & Weight: Vital Signs (12 hours) Temp Pulse Resp BP Pulse Ox 03/30/20 12:00 98.1 F 80 17 121/58 L 100 03/30/20 08:00 96.5 F L 78 18 109/56 L 94 L 03/30/20 03:48 98.7 F 80 17 122/59 L 96 Weight Admit Weight 165 lb 9.074 oz Weight 168 lb 12.8 oz Most Recent Monitor Data Heart Rate from ECG 109 NIBP 137/69 NIBP BP-Mean 91 Respiration from ECG 24 SpO2 96 I&O: 03/29/20 03/30/20 03/31/20 06:59 06:59 06:59 Intake Total 2972 1430 30 Output Total 1200 2075 Balance 1772 645 30 Result Diagrams: 03/29/20 09:35 03/29/20 09:35 Hospitalist ROS - Review of Systems Other: unable to obtain - Medication Medications: Active Medications Generic Name Dose Route Start Last Admin Trade Name Freq PRN Reason Stop Dose Admin Amiodarone HCl 400 mg 03/27/20 15:00 03/30/20 09:52 Cordarone PER TUBE 04/02/20 23:59 400 mg TID MYRIAM Administration Cyanocobalamin 1,000 mcg 03/22/20 09:00 03/30/20 09:52 Vitamin B-12 PO 1,000 mcg DAILY MYRIAM Administration Folic Acid 1 mg 03/22/20 09:00 03/30/20 09:52 Folvite PO 1 mg DAILY MYRIAM Administration Hydralazine HCl 10 mg 03/25/20 16:40 03/25/20 17:27 Apresoline SLOW IVP 10 mg Q4H PRN Administration Blood Pressure SBP>180 Multivitamins 1 tab 03/22/20 09:00 03/30/20 09:52 Theragran PO 1 tab DAILY MYRIAM Administration Ondansetron HCl 4 mg 03/18/20 17:11 03/29/20 09:11 Zofran IVP 4 mg Q6H PRN Administration Nausea/Vomiting Pantoprazole Sodium 40 mg 03/21/20 21:00 03/30/20 09:53 Protonix IVP 40 mg Q12HR MYRIAM Administration Polyethylene Glycol 17 gm 03/19/20 21:00 03/29/20 21:27 Miralax PO Not Given HS MYRIAM Sodium Chloride 10 ml 03/18/20 17:11 03/30/20 01:44 Flush - Normal Saline IVF 10 ml PRN PRN Administration Saline Flush Tamsulosin HCl 0.4 mg 03/18/20 21:00 03/29/20 21:31 Flomax PO 0.4 mg HS MYRIAM Administration - Exam Neck: negative: supple, symmetric, no JVD, no thyromegaly, no lymphadenopathy, no carotid bruit, JVD Heart: negative: RRR, no murmur, no gallops, no rubs, normal peripheral pulses, irregular, diminshed peripheral pulses, murmur present, II/IV, III/IV Respiratory: rales, rhonchi Gastrointestinal: negative: soft, non-tender, non-distended, normal bowel sounds , no palpable masses, no hepatomegaly, no splenomegaly, no bruit, no guarding, no rigidity, tender to palpation, distended, diminished bowl sounds, voluntary guarding Hosp A/P (1) Anemia due to blood loss, acute Code(s): D62 - ACUTE POSTHEMORRHAGIC ANEMIA Status: Acute (2) Aspiration pneumonia Code(s): J69.0 - PNEUMONITIS DUE TO INHALATION OF FOOD AND VOMIT Status: Acute Qualifiers: Laterality: bilateral Lung location: lower lobe of lung (3) Atrial fibrillation with RVR Code(s): I48.91 - UNSPECIFIED ATRIAL FIBRILLATION Status: Acute (4) Dysphagia Code(s): R13.10 - DYSPHAGIA, UNSPECIFIED Status: Acute (5) Encephalopathy Code(s): G93.40 - ENCEPHALOPATHY, UNSPECIFIED Status: Acute (6) GI bleed due to NSAIDs Code(s): K92.2 - GASTROINTESTINAL HEMORRHAGE, UNSPECIFIED; T39.395A - ADVERSE EFFECT OF NONSTEROIDAL ANTI-INFLAMMATORY DRUGS, INIT Status: Acute - Plan pt initially came in for hematemesis secondary due to nsaids. pt had a fall and fx his left humerus. He under went egd and was found to have a erosive gastritis and gastric ulcer with hemoclips. He then had some urinary retention and urology was consulted. His mentation worsen and pt was aspirating. pt also was found to be in afib rvr he is not a candidate for AC due to his bleed. He underwent a peg tube placement. pt will need to go to snf. His hh is low normal. will check labs in am. 03/29 pt very drowsy per nursing staff he did not sleep last night. will check labs and recheck cxr. He is very tachypenic blood gas indicated hypoxemia pt put on a venti mask and he was given lasix. will hold off on tube feedings in concern for possible aspiration. he is on abx (meropenem). called and updated. ammonia level normal. No fever, vitals stable.
--- NOTE | 2020-03-30 16:42 | PDOC.CPN ---
- Subjective Date: 03/30/20 Time: 16:45 Interval history: The pt seen and examined. No overnight events. No cardiac complaints. - Objective Allergies/Adverse Reactions: Allergies Allergy/AdvReac Type Severity Reaction Status Date / Time No Known Drug Allergies Allergy Verified 03/18/20 07:23 Visit Medications: Current Medications Acetaminophen (Tylenol) 650 mg PO Q4H PRN PRN Reason: Headache/Fever/Mild Pain (1-3) Amiodarone HCl (Cordarone) 400 mg PER TUBE TID [facility] Stop: 04/02/20 23:59 Last Admin: 03/30/20 16:06 Dose: 400 mg Amiodarone HCl (Cordarone) 400 mg PO BID [facility] Stop: 04/16/20 09:01 Amiodarone HCl (Cordarone) 200 mg PO BID [facility] Stop: 05/14/20 09:01 Amiodarone HCl (Cordarone) 200 mg PO DAILY [facility] Amoxicillin/Clavulanate Potassium (Augmentin) 875 mg PO Q12HR [facility] Bisacodyl (Dulcolax) 10 mg [place] DAILYPRN PRN PRN Reason: Constipation Calcium Carbonate (Tums) 1,000 mg PO Q4H PRN PRN Reason: Heartburn or Indigestion Cyanocobalamin (Vitamin B-12) 1,000 mcg PO DAILY [facility] Last Admin: 03/30/20 09:52 Dose: 1,000 mcg Folic Acid (Folvite) 1 mg PO DAILY [facility] Last Admin: 03/30/20 09:52 Dose: 1 mg Hydralazine HCl (Apresoline) 10 mg SLOW IVP Q4H PRN PRN Reason: Blood Pressure SBP>180 Last Admin: 03/25/20 17:27 Dose: 10 mg Multivitamins (Theragran) 1 tab PO DAILY [facility] Last Admin: 03/30/20 09:52 Dose: 1 tab Nitroglycerin (Nitrostat) 0.4 mg PO Q5MIN PRN PRN Reason: Chest Pain Ondansetron HCl (Zofran Odt) 4 mg PO Q6H PRN PRN Reason: Nausea/Vomiting Ondansetron HCl (Zofran) 4 mg IVP Q6H PRN PRN Reason: Nausea/Vomiting Last Admin: 03/29/20 09:11 Dose: 4 mg Pantoprazole Sodium (Protonix) 40 mg IVP Q12HR [facility] Last Admin: 03/30/20 09:53 Dose: 40 mg Polyethylene Glycol (Miralax) 17 gm PO DAILYPRN PRN PRN Reason: Constipation Polyethylene Glycol (Miralax) 17 gm PO [facility] Last Admin: 03/29/20 21:27 Dose: Not Given Senna/Docusate Sodium (Senokot S) 2 tab PO BIDPRN PRN PRN Reason: Constipation Sodium Chloride (Flush - Normal Saline) 10 ml IVF PRN PRN PRN Reason: Saline Flush Last Admin: 03/30/20 01:44 Dose: 10 ml Tamsulosin HCl (Flomax) 0.4 mg PO [facility] Last Admin: 03/29/20 21:31 Dose: 0.4 mg Vital Signs & Weight: Vital Signs Temp Pulse Resp BP BP Pulse Ox 03/30/20 16:00 98.1 F 77 17 134/63 97 03/30/20 12:00 98.1 F 80 17 121/58 L 100 03/30/20 08:00 96.5 F L 78 18 109/56 L 94 L Admit Weight 165 lb 9.074 oz Weight 168 lb 12.8 oz - Physical Exam General: other (self only) Cardiac: regular rate and rhythm, S1/S2 Extremities: no edema - Labs Result Diagrams: 03/30/20 18:46 03/30/20 18:46 Troponin/CKMB CK-MB (CK-2) 1.6 ng/mL (0-6.6) 03/22/20 12:32 Troponin I 0.037 ng/mL (< 0.028) H 03/22/20 12:32 - Telemetry Sinus rhythms and dysrhythmias: sinus rhythm - Assessment/Plan Assessment/Plan: 1. Afib with RVR - remains in SR with Amiodarone taper dose; not a candidate for OAC or ASA for now due to hx of GI bleed 2. Anemia 2/2 NSAID induced GI bleed 3. S/p GI bleed - s/p EGD with erosive gastritis and gastric ulcer with hemoclips 4. Aspiration PNA 5. Dysphagia with s/p PEG tube placement 6. Hyponatremia MAR reviewed * DNAR * Dr Flowers' pt Pt. seen and eval. by me. I agree with the A/P by the AIRLINE COUNTER AGENT. RRR,chest clear. gjm
--- NOTE | 2020-03-30 17:05 | PDOC.HOSPP ---
- Subjective Encounter Date: 03/30/20 Encounter Time: 09:00 Subjective: pt awake up in bed much improved compared to yesterday. He is very hard of hearing. - Objective Vital Signs & Weight: Vital Signs (12 hours) Temp Pulse Resp BP BP Pulse Ox 03/30/20 16:00 98.1 F 77 17 134/63 97 03/30/20 12:00 98.1 F 80 17 121/58 L 100 03/30/20 08:00 96.5 F L 78 18 109/56 L 94 L Weight Admit Weight 165 lb 9.074 oz Weight 168 lb 12.8 oz Most Recent Monitor Data Heart Rate from ECG 109 NIBP 137/69 NIBP BP-Mean 91 Respiration from ECG 24 SpO2 96 I&O: 03/29/20 03/30/20 03/31/20 06:59 06:59 06:59 Intake Total 2972 1430 60 Output Total 1200 2075 Balance 1772 -645 60 Result Diagrams: 03/29/20 09:35 03/29/20 09:35 Hospitalist ROS - Review of Systems Cardiovascular: denies: chest pain, palpitations, orthopnea, paroxysmal noc. dyspnea, edema, light headedness, other Gastrointestinal: denies: nausea, vomiting, abdominal pain, diarrhea, constipation, melena, hematochezia, other Genitourinary: denies: dysuria, frequency, incontinence, hematuria, retention, other - Medication Medications: Active Medications Generic Name Dose Route Start Last Admin Trade Name Freq PRN Reason Stop Dose Admin Amiodarone HCl 400 mg 03/27/20 15:00 03/30/20 16:06 Cordarone PER TUBE 04/02/20 23:59 400 mg TID MYRIAM Administration Cyanocobalamin 1,000 mcg 03/22/20 09:00 03/30/20 09:52 Vitamin B-12 PO 1,000 mcg DAILY MYRIAM Administration Folic Acid 1 mg 03/22/20 09:00 03/30/20 09:52 Folvite PO 1 mg DAILY MYRIAM Administration Hydralazine HCl 10 mg 03/25/20 16:40 03/25/20 17:27 Apresoline SLOW IVP 10 mg Q4H PRN Administration Blood Pressure SBP>180 Multivitamins 1 tab 03/22/20 09:00 03/30/20 09:52 Theragran PO 1 tab DAILY MYRIAM Administration Ondansetron HCl 4 mg 03/18/20 17:11 03/29/20 09:11 Zofran IVP 4 mg Q6H PRN Administration Nausea/Vomiting Pantoprazole Sodium 40 mg 03/21/20 21:00 03/30/20 09:53 Protonix IVP 40 mg Q12HR MYRIAM Administration Polyethylene Glycol 17 gm 03/19/20 21:00 03/29/20 21:27 Miralax PO Not Given HS MYRIAM Sodium Chloride 10 ml 03/18/20 17:11 03/30/20 01:44 Flush - Normal Saline IVF 10 ml PRN PRN Administration Saline Flush Tamsulosin HCl 0.4 mg 03/18/20 21:00 03/29/20 21:31 Flomax PO 0.4 mg HS MYRIAM Administration - Exam Neck: negative: supple, symmetric, no JVD, no thyromegaly, no lymphadenopathy, no carotid bruit, JVD Heart: negative: RRR, no murmur, no gallops, no rubs, normal peripheral pulses, irregular, diminshed peripheral pulses, murmur present, II/IV, III/IV Respiratory: negative: CTAB, no wheezes, no rales, no ronchi, normal chest expansion, no tachypnea, normal percussion, rales, rhonchi, tachypneic, wheezes Gastrointestinal: negative: soft, non-tender, non-distended, normal bowel sounds , no palpable masses, no hepatomegaly, no splenomegaly, no bruit, no guarding, no rigidity, tender to palpation, distended, diminished bowl sounds, voluntary guarding Hosp A/P (1) Anemia due to blood loss, acute Code(s): D62 - ACUTE POSTHEMORRHAGIC ANEMIA Status: Acute (2) Aspiration pneumonia Code(s): J69.0 - PNEUMONITIS DUE TO INHALATION OF FOOD AND VOMIT Status: Acute Qualifiers: Laterality: bilateral Lung location: lower lobe of lung (3) Atrial fibrillation with RVR Code(s): I48.91 - UNSPECIFIED ATRIAL FIBRILLATION Status: Acute (4) Dysphagia Code(s): R13.10 - DYSPHAGIA, UNSPECIFIED Status: Acute (5) Encephalopathy Code(s): G93.40 - ENCEPHALOPATHY, UNSPECIFIED Status: Acute (6) GI bleed due to NSAIDs Code(s): K92.2 - GASTROINTESTINAL HEMORRHAGE, UNSPECIFIED; T39.395A - ADVERSE EFFECT OF NONSTEROIDAL ANTI-INFLAMMATORY DRUGS, INIT Status: Acute - Plan pt initially came in for hematemesis secondary due to nsaids. pt had a fall and fx his left humerus. He under went egd and was found to have a erosive gastritis and gastric ulcer with hemoclips. He then had some urinary retention and urology was consulted. His mentation worsen and pt was aspirating. pt also was found to be in afib rvr he is not a candidate for AC due to his bleed. He underwent a peg tube placement. pt will need to go to snf. His hh is low normal. will check labs in am. 03/29 pt very drowsy per nursing staff he did not sleep last night. will check labs and recheck cxr. He is very tachypenic blood gas indicated hypoxemia pt put on a venti mask and he was given lasix. will hold off on tube feedings in concern for possible aspiration. he is on abx (meropenem). called and updated. ammonia level normal. No fever, vitals stable. 03/30 pt look well today, will switch his abx to oral. His feedings are at goal. hopefully he will go to snf in am. I spoke with night nurse around 0630 who informed me that pt slept well last night compared to previous night.
[2020-03-30 19:09] LABS: #Eosinphils 0.2 thou/uL (0.0-0.7); #Lymphocytes 0.6 thou/uL (1.20-3.40); #Monocytes 1.1 thou/uL (0.11-0.59); #Neutrophils 6.2 thou/uL (1.40-6.50); %Basophils 0.2 % (0.0-1.0); %Eosinophils 2.7 % (0.0-10.0); %Lymphocytes 7.3 % (21.0-51.0); %Monocytes 13.4 % (0.0-10.0); %Neutrophils 76.3 % (42.0-75.0); Hemoglobin 9.2 g/dL (14.0-18.0); Mean Corpuscular HGB CONC 31.7 g/dL (32.0-36.0); Mean Corpuscular Hemoglobin 29.6 pg (27.0-31.0); Mean Corpuscular Volume 93.5 fL (78.0-98.0); Mean Platelet Volume 6.9 fL (7.4-10.4); Platelet Count 482 thou/uL (130-400); RBC Distribution Width 13.9 % (11.5-14.5); White Blood Cell (WBC) Count 8.1 thou/uL (4.8-10.8)
[2020-03-30 19:14] LABS: Anion Gap 11 mmol/L (10-20); BUN (Urea Nitrogen) 20 mg/dL (8.4-25.7); Calc. Creatinine Clearance 76 mL/min (70-130); Calcium 7.9 mg/dL (7.8-10.44); Carbon Dioxide 23 mmol/L (23-31); Chloride 97 mmol/L (98-107); Estimated GFR-MDRD Greater than 90; Glucose 132 mg/dL (83-110); Potassium 4.3 mmol/L (3.5-5.1); Sodium 127 mmol/L (136-145)
[2020-03-30] MEDS: Amoxicillin/Potassium Clav 875 MG TAB PO SCH (21:57)
[2020-03-30] MEDS: Enoxaparin Sodium 40 MG/0.4 ML SYRINGE SC SCH (21:57)
[2020-03-30] MEDS: Tamsulosin HCl 0.4 MG CAP PO SCH (21:58)
[2020-03-30] MEDS: Polyethylene Glycol 3350 17 GM Packet PO SCH (21:58)
[2020-03-31] MEDS: Pantoprazole 40 MG VIAL IVP SCH ×2 (09:44→21:57)
[2020-03-31] MEDS: Amoxicillin/Potassium Clav 875 MG TAB PO SCH ×2 (09:52→21:56)
[2020-03-31] MEDS: Cyanocobalamin (Vitamin B-12) 1,000 MCG TAB PO SCH (09:53)
[2020-03-31] MEDS: Amiodarone 200 MG TAB PER TUBE SCH ×3 (09:53→21:56)
[2020-03-31] MEDS: Folic Acid 1 MG TAB PO SCH (09:53)
[2020-03-31] MEDS: Multivit, Therapeutic 1 TAB PO SCH (09:53)
[2020-03-31 10:06] LABS: #Eosinphils 0.2 thou/uL (0.0-0.7); #Lymphocytes 0.6 thou/uL (1.20-3.40); #Monocytes 0.9 thou/uL (0.11-0.59); %Eosinophils 3.5 % (0.0-10.0); %Lymphocytes 9.4 % (21.0-51.0); %Monocytes 12.5 % (0.0-10.0); %Neutrophils 74.5 % (42.0-75.0); Hemoglobin 8.5 g/dL (14.0-18.0); Mean Corpuscular HGB CONC 32.1 g/dL (32.0-36.0); Mean Corpuscular Hemoglobin 29.3 pg (27.0-31.0); Mean Corpuscular Volume 91.5 fL (78.0-98.0); Mean Platelet Volume 6.8 fL (7.4-10.4); Platelet Count 479 thou/uL (130-400); RBC Distribution Width 13.9 % (11.5-14.5); Red Blood Cell (RBC) Count 2.89 mill/uL (4.70-6.10); White Blood Cell (WBC) Count 6.8 thou/uL (4.8-10.8)
[2020-03-31 10:28] LABS: Anion Gap 7 mmol/L (10-20); BUN (Urea Nitrogen) 19 mg/dL (8.4-25.7); Calc. Creatinine Clearance 77 mL/min (70-130); Calcium 7.4 mg/dL (7.8-10.44); Carbon Dioxide 28 mmol/L (23-31); Chloride 97 mmol/L (98-107); Estimated GFR-MDRD Greater than 90; Glucose 153 mg/dL (83-110); Magnesium 2.1 mg/dL (1.6-2.6); Phosphorus 2.1 mg/dL (2.3-4.7); Potassium 4.5 mmol/L (3.5-5.1); Sodium 127 mmol/L (136-145)
--- NOTE | 2020-03-31 16:44 | DIS ---
DATE OF ADMISSION: 03/18/2020 DATE OF DISCHARGE: 03/31/2020 DISCHARGE DIAGNOSES: As of the following; 1. Hematemesis. 2. Anemia secondary to acute blood loss. 3. Aspiration pneumonia. 4. Atrial fibrillation with rapid ventricular response. 5. Dysphagia. 6. Acute metabolic encephalopathy. HOSPITAL COURSE: The patient is an 85-year-old male, who initially presented to the hospital with hematemesis secondary to NSAID use. He also had a fracture of the left humerus and was on NSAIDs for that. The patient really did not have any significant medical history. He initially underwent an EGD and was found to have an erosive gastritis and gastric ulcers, which he underwent hemoclips for. He did have some urinary retention at this time. He was seen by Urology and had inserted a Shannon catheter. At this time, he also went into atrial fibrillation with RVR, however, due to his recent bleed, he was not a candidate for anticoagulation. The patient while he was in the hospital, his mentation worsened. He was found to be possibly having aspiration pneumonia. He was put on broad-spectrum antibiotics with meropenem. The patient also underwent a PEG tube placement since he continued to have aspiration. The patient now is on tube feedings. He is more awake and oriented x2. He will be discharged to residential for further rehabilitation. MEDICATIONS: The patient's home medications on discharge will be as of the following; he is going to be on, 1. Amiodarone 400 mg t.i.d. until 15 and then there is a tapering dose of 400 mg b.i.d. from 04/03 to 04/16 and then 200 mg twice a day from 04/17 to 05/14 and then 200 mg daily starting on from 05/15. 2. He is on Augmentin for the next 5 days. 3. Vitamin B12. 4. Folic acid. 5. Multivitamin. 6. Protonix 40 mg twice a day. 7. MiraLAX 17 g daily. 8. Flomax 0.4 mg daily. PHYSICAL EXAMINATION: VITAL SIGNS: On discharge are as of the following; temperature of 98.0, pulse 72, respiratory rate 18, oxygen saturation 97% on 4 L. GENERAL: He is awake, alert, and oriented x3. Does not appear in any distress. CV: S1 and S2 present. No murmurs, rubs, or gallops. ABDOMEN: Soft and nontender. Bowel sounds are present x2. A couple of days ago, he had some change in mentation. He appeared to be very drowsy. At this time, an ABG was done, which indicated some hypoxemia. At this time, he was put on some oxygen and he was given a dose of Lasix. Since then, he has been doing fairly well. The patient again will be discharged to a residential. His H and H on the discharge day were 8.5, which is around his baseline. He will follow up with Primary, with Orthopedics, also with GI, with Cardiology, and with Urology. He had an echocardiogram, which indicated an EF of 60% to 65%, and also per Ortho's note, recommended to follow up in 2 to 4 weeks for new x-rays and to keep his arm elevated and keep on to move the arm. Job ID: [id number]
[2020-03-31] MEDS: Tamsulosin HCl 0.4 MG CAP PO SCH (21:56)
[2020-03-31] MEDS: Enoxaparin Sodium 40 MG/0.4 ML SYRINGE SC SCH (21:56)
[2020-03-31] MEDS: Polyethylene Glycol 3350 17 GM Packet PO SCH (21:57)
[2020-04-01] MEDS ORDERED: Ondansetron ODT 4 MG TAB PER TUBE PRN (07:45)
[2020-04-01] MEDS ORDERED: Calcium Carbonate 500 MG ChewTAB PER TUBE PRN (07:45)
[2020-04-01] MEDS ORDERED: Acetaminophen 325 MG TAB PER TUBE PRN (07:45)
[2020-04-01] MEDS ORDERED: Senokot S 8.6-50 MG TAB PER TUBE PRN (07:45)
[2020-04-01] MEDS ORDERED: Polyethylene Glycol 3350 17 GM Packet PER TUBE PRN (07:45)
[2020-04-01] MEDS ORDERED: Nitroglycerin 0.4 MG TAB (25 Tab Bottle) PER TUBE PRN (07:45)
[2020-04-01] MEDS: Amiodarone 200 MG TAB PER TUBE SCH ×3 (08:51→20:58)
[2020-04-01] MEDS: Amoxicillin/Potassium Clav 875 MG TAB PER TUBE SCH ×2 (08:51→20:58)
[2020-04-01] MEDS: Cyanocobalamin (Vitamin B-12) 1,000 MCG TAB PER TUBE SCH (08:51)
[2020-04-01] MEDS: Pantoprazole 40 MG VIAL IVP SCH ×2 (08:52→20:59)
[2020-04-01] MEDS: Multivit, Therapeutic 1 TAB PER TUBE SCH (08:52)
[2020-04-01] MEDS: Folic Acid 1 MG TAB PER TUBE SCH (08:52)
--- NOTE | 2020-04-01 17:01 | PDOC.HOSPP ---
- Subjective Encounter Date: 03/31/20 Encounter Time: 10:30 Subjective: pt up in bed no complains - Objective Vital Signs & Weight: Vital Signs (12 hours) Temp Pulse Resp BP BP BP Pulse Ox 04/01/20 15:25 97.5 F L 77 20 133/62 93 L 04/01/20 11:40 97.6 F 76 16 131/61 94 L 04/01/20 07:27 97.7 F 74 20 136/61 97 Weight Admit Weight 165 lb 9.074 oz Weight 171 lb 12.8 oz Most Recent Monitor Data Heart Rate from ECG 109 NIBP 137/69 NIBP BP-Mean 91 Respiration from ECG 24 SpO2 96 I&O: 03/31/20 04/01/20 04/02/20 06:59 06:59 06:59 Intake Total 20190 1722 Output Total 1225 2300 850 Balance 795 -90 872 Result Diagrams: 03/31/20 10:01 03/31/20 10:01 Hospitalist ROS - Review of Systems Respiratory: denies: cough, dry, shortness of breath, hemoptysis, SOB with excertion, pleuritic pain, sputum, wheezing, other Cardiovascular: denies: chest pain, palpitations, orthopnea, paroxysmal noc. dyspnea, edema, light headedness, other Gastrointestinal: denies: nausea, vomiting, abdominal pain, diarrhea, constipation, melena, hematochezia, other - Medication Medications: Active Medications Generic Name Dose Route Start Last Admin Trade Name Freq PRN Reason Stop Dose Admin Amiodarone HCl 400 mg 03/27/20 15:00 04/01/20 15:29 Cordarone PER TUBE 04/02/20 23:59 400 mg TID MYRIAM Administration Amoxicillin/Clavulanate Potassium 875 mg 04/01/20 09:00 04/01/20 08:51 Augmentin PER TUBE 875 mg Q12HR MYRIAM Administration Cyanocobalamin 1,000 mcg 04/01/20 09:00 04/01/20 08:51 Vitamin B-12 PER TUBE 1,000 mcg DAILY MYRIAM Administration Enoxaparin Sodium 40 mg 03/30/20 21:00 03/31/20 21:56 Lovenox SC 40 mg 2100 MYRIAM Administration Folic Acid 1 mg 04/01/20 09:00 04/01/20 08:52 Folvite PER TUBE 1 mg DAILY MYRIAM Administration Hydralazine HCl 10 mg 03/25/20 16:40 03/25/20 17:27 Apresoline SLOW IVP 10 mg Q4H PRN Administration Blood Pressure SBP>180 Multivitamins 1 tab 04/01/20 09:00 04/01/20 08:52 Theragran PER TUBE 1 tab DAILY MYRIAM Administration Ondansetron HCl 4 mg 03/18/20 17:11 03/29/20 09:11 Zofran IVP 4 mg Q6H PRN Administration Nausea/Vomiting Pantoprazole Sodium 40 mg 03/21/20 21:00 04/01/20 08:52 Protonix IVP 40 mg Q12HR MYRIAM Administration Sodium Chloride 10 ml 03/18/20 17:11 03/31/20 21:57 Flush - Normal Saline IVF 10 ml PRN PRN Administration Saline Flush Tamsulosin HCl 0.4 mg 03/18/20 21:00 03/31/20 21:56 Flomax PO 0.4 mg HS MYRIAM Administration - Exam Neck: negative: supple, symmetric, no JVD, no thyromegaly, no lymphadenopathy, no carotid bruit, JVD Heart: negative: RRR, no murmur, no gallops, no rubs, normal peripheral pulses, irregular, diminshed peripheral pulses, murmur present, II/IV, III/IV Respiratory: rales Gastrointestinal: negative: soft, non-tender, non-distended, normal bowel sounds , no palpable masses, no hepatomegaly, no splenomegaly, no bruit, no guarding, no rigidity, tender to palpation, distended, diminished bowl sounds, voluntary guarding Hosp A/P (1) Anemia due to blood loss, acute Code(s): D62 - ACUTE POSTHEMORRHAGIC ANEMIA Status: Acute (2) Aspiration pneumonia Code(s): J69.0 - PNEUMONITIS DUE TO INHALATION OF FOOD AND VOMIT Status: Acute Qualifiers: Laterality: bilateral Lung location: lower lobe of lung (3) Atrial fibrillation with RVR Code(s): I48.91 - UNSPECIFIED ATRIAL FIBRILLATION Status: Acute (4) Dysphagia Code(s): R13.10 - DYSPHAGIA, UNSPECIFIED Status: Acute (5) Encephalopathy Code(s): G93.40 - ENCEPHALOPATHY, UNSPECIFIED Status: Acute (6) GI bleed due to NSAIDs Code(s): K92.2 - GASTROINTESTINAL HEMORRHAGE, UNSPECIFIED; T39.395A - ADVERSE EFFECT OF NONSTEROIDAL ANTI-INFLAMMATORY DRUGS, INIT Status: Acute - Plan pt initially came in for hematemesis secondary due to nsaids. pt had a fall and fx his left humerus. He under went egd and was found to have a erosive gastritis and gastric ulcer with hemoclips. He then had some urinary retention and urology was consulted. His mentation worsen and pt was aspirating. pt also was found to be in afib rvr he is not a candidate for AC due to his bleed. He underwent a peg tube placement. pt will need to go to snf. His hh is low normal. will check labs in am. 03/29 pt very drowsy per nursing staff he did not sleep last night. will check labs and recheck cxr. He is very tachypenic blood gas indicated hypoxemia pt put on a venti mask and he was given lasix. will hold off on tube feedings in concern for possible aspiration. he is on abx (meropenem). called and updated. ammonia level normal. No fever, vitals stable. 03/30 pt look well today, will switch his abx to oral. His feedings are at goal. hopefully he will go to snf in am. I spoke with night nurse around 0630 who informed me that pt slept well last night compared to previous night. 03/31 pt up in bed no complains, will discharge him today. pt tolerating his feeds.
--- NOTE | 2020-04-01 17:17 | PDOC.HOSPP ---
- Subjective Encounter Date: 04/01/20 Encounter Time: 11:00 Subjective: pt up in bed no complains - Objective Vital Signs & Weight: Vital Signs (12 hours) Temp Pulse Pulse Pulse Resp BP BP 04/01/20 16:16 80 84 129/69 149/72 H 04/01/20 15:25 97.5 F L 77 20 04/01/20 11:40 97.6 F 76 16 04/01/20 07:27 97.7 F 74 20 BP BP BP Pulse Ox 04/01/20 16:16 04/01/20 15:25 133/62 93 L 04/01/20 11:40 131/61 94 L 04/01/20 07:27 136/61 97 Weight Admit Weight 165 lb 9.074 oz Weight 171 lb 12.8 oz Most Recent Monitor Data Heart Rate from ECG 109 NIBP 137/69 NIBP BP-Mean 91 Respiration from ECG 24 SpO2 96 I&O: 03/31/20 04/01/20 04/02/20 06:59 06:59 06:59 Intake Total 2019 2210 1722 Output Total 1225 2300 850 Balance 795 -90 872 Result Diagrams: 03/31/20 10:01 03/31/20 10:01 Hospitalist ROS - Review of Systems Cardiovascular: denies: chest pain, palpitations, orthopnea, paroxysmal noc. dyspnea, edema, light headedness, other Gastrointestinal: denies: nausea, vomiting, abdominal pain, diarrhea, constipation, melena, hematochezia, other Genitourinary: denies: dysuria, frequency, incontinence, hematuria, retention, other - Medication Medications: Active Medications Generic Name Dose Route Start Last Admin Trade Name Freq PRN Reason Stop Dose Admin Amiodarone HCl 400 mg 03/27/20 15:00 04/01/20 15:29 Cordarone PER TUBE 04/02/20 23:59 400 mg TID MYRIAM Administration Amoxicillin/Clavulanate Potassium 875 mg 04/01/20 09:00 04/01/20 08:51 Augmentin PER TUBE 875 mg Q12HR MYRIAM Administration Cyanocobalamin 1,000 mcg 04/01/20 09:00 04/01/20 08:51 Vitamin B-12 PER TUBE 1,000 mcg DAILY MYRIAM Administration Enoxaparin Sodium 40 mg 03/30/20 21:00 03/31/20 21:56 Lovenox SC 40 mg 2100 MYRIAM Administration Folic Acid 1 mg 04/01/20 09:00 04/01/20 08:52 Folvite PER TUBE 1 mg DAILY MYRIAM Administration Hydralazine HCl 10 mg 03/25/20 16:40 03/25/20 17:27 Apresoline SLOW IVP 10 mg Q4H PRN Administration Blood Pressure SBP>180 Multivitamins 1 tab 04/01/20 09:00 04/01/20 08:52 Theragran PER TUBE 1 tab DAILY MYRIAM Administration Ondansetron HCl 4 mg 03/18/20 17:11 03/29/20 09:11 Zofran IVP 4 mg Q6H PRN Administration Nausea/Vomiting Pantoprazole Sodium 40 mg 03/21/20 21:00 04/01/20 08:52 Protonix IVP 40 mg Q12HR MYRIAM Administration Sodium Chloride 10 ml 03/18/20 17:11 03/31/20 21:57 Flush - Normal Saline IVF 10 ml PRN PRN Administration Saline Flush Tamsulosin HCl 0.4 mg 03/18/20 21:00 03/31/20 21:56 Flomax PO 0.4 mg HS MYRIAM Administration - Exam Heart: negative: RRR, no murmur, no gallops, no rubs, normal peripheral pulses, irregular, diminshed peripheral pulses, murmur present, II/IV, III/IV Respiratory: negative: CTAB, no wheezes, no rales, no ronchi, normal chest expansion, no tachypnea, normal percussion, rales, rhonchi, tachypneic, wheezes Gastrointestinal: negative: soft, non-tender, non-distended, normal bowel sounds , no palpable masses, no hepatomegaly, no splenomegaly, no bruit, no guarding, no rigidity, tender to palpation, distended, diminished bowl sounds, voluntary guarding Extremities: 1+ LE edema Extremities - other findings: left arm Hosp A/P (1) Anemia due to blood loss, acute Code(s): D62 - ACUTE POSTHEMORRHAGIC ANEMIA Status: Acute (2) Aspiration pneumonia Code(s): J69.0 - PNEUMONITIS DUE TO INHALATION OF FOOD AND VOMIT Status: Acute Qualifiers: Laterality: bilateral Lung location: lower lobe of lung (3) Atrial fibrillation with RVR Code(s): I48.91 - UNSPECIFIED ATRIAL FIBRILLATION Status: Acute (4) Dysphagia Code(s): R13.10 - DYSPHAGIA, UNSPECIFIED Status: Acute (5) Encephalopathy Code(s): G93.40 - ENCEPHALOPATHY, UNSPECIFIED Status: Acute (6) GI bleed due to NSAIDs Code(s): K92.2 - GASTROINTESTINAL HEMORRHAGE, UNSPECIFIED; T39.395A - ADVERSE EFFECT OF NONSTEROIDAL ANTI-INFLAMMATORY DRUGS, INIT Status: Acute - Plan pt initially came in for hematemesis secondary due to nsaids. pt had a fall and fx his left humerus. He under went egd and was found to have a erosive gastritis and gastric ulcer with hemoclips. He then had some urinary retention and urology was consulted. His mentation worsen and pt was aspirating. pt also was found to be in afib rvr he is not a candidate for AC due to his bleed. He underwent a peg tube placement. pt will need to go to snf. His hh is low normal. will check labs in am. 03/29 pt very drowsy per nursing staff he did not sleep last night. will check labs and recheck cxr. He is very tachypenic blood gas indicated hypoxemia pt put on a venti mask and he was given lasix. will hold off on tube feedings in concern for possible aspiration. he is on abx (meropenem). called and updated. ammonia level normal. No fever, vitals stable. 03/30 pt look well today, will switch his abx to oral. His feedings are at goal. hopefully he will go to snf in am. I spoke with night nurse around 0630 who informed me that pt slept well last night compared to previous night. 03/31 pt up in bed no complains, will discharge him today. pt tolerating his feeds. 04/01 pt unable to go yest since OR has not submitted paperwork to insurance company. pt got up by pt and had a small amount of emesis. if he has it again will reevaluate.
[2020-04-01] MEDS: Tamsulosin HCl 0.4 MG CAP PO SCH (20:58)
[2020-04-01] MEDS: Polyethylene Glycol 3350 17 GM Packet PER TUBE SCH (20:58)
[2020-04-01] MEDS: Enoxaparin Sodium 40 MG/0.4 ML SYRINGE SC SCH (20:59)
[2020-04-02 04:17] LABS: #Basophils 0.1 thou/uL (0.0-0.2); #Eosinphils 0.3 thou/uL (0.0-0.7); #Lymphocytes 0.7 thou/uL (1.20-3.40); #Neutrophils 4.8 thou/uL (1.40-6.50); %Basophils 0.7 % (0.0-1.0); %Eosinophils 3.9 % (0.0-10.0); %Lymphocytes 10.4 % (21.0-51.0); %Monocytes 14.5 % (0.0-10.0); %Neutrophils 70.4 % (42.0-75.0); Hemoglobin 8.6 g/dL (14.0-18.0); Mean Corpuscular Volume 90.5 fL (78.0-98.0); Mean Platelet Volume 6.9 fL (7.4-10.4); Platelet Count 526 thou/uL (130-400); RBC Distribution Width 14.1 % (11.5-14.5); Red Blood Cell (RBC) Count 2.97 mill/uL (4.70-6.10); White Blood Cell (WBC) Count 6.9 thou/uL (4.8-10.8)
[2020-04-02 04:34] LABS: Anion Gap 10 mmol/L (10-20); BUN (Urea Nitrogen) 18 mg/dL (8.4-25.7); Calc. Creatinine Clearance 81 mL/min (70-130); Calcium 7.9 mg/dL (7.8-10.44); Carbon Dioxide 26 mmol/L (23-31); Chloride 100 mmol/L (98-107); Estimated GFR-MDRD Greater than 90; Glucose 136 mg/dL (83-110); Magnesium 2.1 mg/dL (1.6-2.6); Phosphorus 2.4 mg/dL (2.3-4.7); Potassium 4.6 mmol/L (3.5-5.1); Sodium 131 mmol/L (136-145)
[2020-04-02] MEDS: Pantoprazole 40 MG VIAL IVP SCH ×2 (08:54→21:34)
[2020-04-02] MEDS: Folic Acid 1 MG TAB PER TUBE SCH (08:54)
[2020-04-02] MEDS: Multivit, Therapeutic 1 TAB PER TUBE SCH (08:54)
[2020-04-02] MEDS: Amoxicillin/Potassium Clav 875 MG TAB PER TUBE SCH ×3 (08:54→21:35)
[2020-04-02] MEDS: Amiodarone 200 MG TAB PER TUBE SCH ×3 (08:55→21:34)
[2020-04-02] MEDS: Cyanocobalamin (Vitamin B-12) 1,000 MCG TAB PER TUBE SCH (08:55)
[2020-04-02 13:25] VITALS: BMI 23.7
[2020-04-02] MEDS: Polyethylene Glycol 3350 17 GM Packet PER TUBE SCH (21:00)
[2020-04-02] MEDS: Tamsulosin HCl 0.4 MG CAP PO SCH (21:35)
[2020-04-02] MEDS: Enoxaparin Sodium 40 MG/0.4 ML SYRINGE SC SCH (21:35)
[2020-04-03] MEDS ORDERED: Amiodarone 200 MG TAB PER TUBE SCH (09:00)
[2020-04-03] MEDS: Amoxicillin/Potassium Clav 875 MG TAB PER TUBE SCH (09:38)
[2020-04-03] MEDS: Folic Acid 1 MG TAB PER TUBE SCH (09:38)
[2020-04-03] MEDS: Pantoprazole 40 MG VIAL IVP SCH (09:39)
[2020-04-03] MEDS: Cyanocobalamin (Vitamin B-12) 1,000 MCG TAB PER TUBE SCH (09:39)
[2020-04-03] MEDS: Multivit, Therapeutic 1 TAB PER TUBE SCH (09:39)
[2020-04-03 13:19] VITALS: BP 119/75; TEMP 98
[2020-04-17] MEDS ORDERED: Amiodarone 200 MG TAB PO SCH (09:00)
[2020-05-15] MEDS ORDERED: Amiodarone 200 MG TAB PO SCH (09:00)
== END 2020-04-03 13:11 | DRG 377 ==
LOC: ERS 06:10 → IMCU/EMU 09:19 → 2NO 03-19 13:17 → T4-A 04-02 11:04
PROVIDERS: ADMIT Internal Medicine; ATTEND Internal Medicine
PROC: 0W3P8ZZ Control Bleeding in Gastrointestinal Tract, Via Natural or Artificial Opening Endoscopic (ICD-10-PCS; principal; 2020-03-18)
PROC: 0DH63UZ Insertion of Feeding Device into Stomach, Percutaneous Approach (ICD-10-PCS; 2020-03-26)
PROC: 0DJ08ZZ Inspection of Upper Intestinal Tract, Via Natural or Artificial Opening Endoscopic (ICD-10-PCS; 2020-03-26)
DX: K25.4 Chronic or unspecified gastric ulcer with hemorrhage (principal); J69.0 Pneumonitis due to inhalation of food and vomit; G93.41 Metabolic encephalopathy; D62 Acute posthemorrhagic anemia; E87.1 Hypo-osmolality and hyponatremia; K22.10 Ulcer of esophagus without bleeding; Z20.828 Contact with and (suspected) exposure to other viral communicable diseases; R29.6 Repeated falls; H91.90 Unspecified hearing loss, unspecified ear; H35.30 Unspecified macular degeneration; I27.20 Pulmonary hypertension, unspecified; E83.39 Other disorders of phosphorus metabolism; N40.1 Benign prostatic hyperplasia with lower urinary tract symptoms; R13.12 Dysphagia, oropharyngeal phase; K44.9 Diaphragmatic hernia without obstruction or gangrene; K22.2 Esophageal obstruction; R33.8 Other retention of urine; E83.42 Hypomagnesemia; E87.6 Hypokalemia; I08.1 Rheumatic disorders of both mitral and tricuspid valves; I95.89 Other hypotension; I48.91 Unspecified atrial fibrillation; Z79.01 Long term (current) use of anticoagulants; S42.202D Unspecified fracture of upper end of left humerus, subsequent encounter for fracture with routine healing; Z79.1 Long term (current) use of non-steroidal anti-inflammatories (NSAID)
CPT/HCPCS: 36415; 36416; 71045; 74018; 74230; 80048; 80053; 80076; 82140; 82553; 82607; 82728; 82746; 82805; 83540; 83550; 83605; 83735; 83880; 84100; 84443; 84484; 85025; 85610; 85730; 86140; 86850; 86900; 86901; 87635; 93306; 93970; 94760; 96361; 96365; 96375; 96376; C9113; J0282; J0360; J0696; J1650; J1940; J2185; J2354; J2405; J2704; J3010; J3475; J3480; J3490; J7050; J7070; U0003

== ENCOUNTER 2020-06-12 08:35 | Day surgery (SDC) | payer MEDICARE ==
[2020-06-11 12:34] VITALS: BMI 23.1
[2020-06-12 09:15] LABS: #Eosinphils 0.1 thou/uL (0.0-0.7); #Lymphocytes 0.8 thou/uL (1.20-3.40); #Monocytes 0.8 thou/uL (0.11-0.59); #Neutrophils 9.4 thou/uL (1.40-6.50); %Basophils 0.3 % (0.0-1.0); %Eosinophils 1.1 % (0.0-10.0); %Lymphocytes 6.9 % (21.0-51.0); %Monocytes 7.1 % (0.0-10.0); %Neutrophils 84.6 % (42.0-75.0); Hemoglobin 13.7 g/dL (14.0-18.0); Mean Corpuscular HGB CONC 32.3 g/dL (32.0-36.0); Mean Corpuscular Hemoglobin 28.7 pg (27.0-31.0); Mean Corpuscular Volume 89.1 fL (78.0-98.0); Mean Platelet Volume 7.6 fL (7.4-10.4); Platelet Count 476 thou/uL (130-400); RBC Distribution Width 16.8 % (11.5-14.5); Red Blood Cell (RBC) Count 4.78 mill/uL (4.70-6.10); White Blood Cell (WBC) Count 11.1 thou/uL (4.8-10.8)
[2020-06-12] MEDS ORDERED: Sodium Bicarbonate 2.5 MEQ/5 ML VIAL ONE (09:34)
[2020-06-12 09:37] LABS: PTT 36.2 sec (22.9-36.1); Prothrombin Time 13.6 sec (12.0-14.7)
[2020-06-12 11:27] VITALS: BP 129/76; TEMP 97.6
--- NOTE | 2020-06-12 15:19 | CT ---
PROCEDURE: CT Supra Pubic Catheter [facility] PROVIDED CLINICAL HISTORY: Urinary retention. Chronic indwelling Shannon catheter. Placement of a suprapubic catheter was siva zamarripa. COMPARISON: None TECHNIQUE: After informed consent was obtained, the patient was placed on the CT scan table in the supine positi on. Limited noncontrasted CT scan was obtained through the level of the urinary bladder. Urinary bladder was distended with approximately 200 mL of normal saline via the Shannon catheter. An area over lying the midline at the level of the urinary bladder was marked, and the area was meticulously prepped and draped in usual sterile fashion. The skin and subcutaneous tissues were infiltrated with buffered 1% lidocaine for local anesthesia. A small skin incision was made. A 14 American suprapubic catheter with trocar and stiff inner dilator were advanced into the urinary bladder. Trocar and inner stylette were removed. There was a return of clear urine. The distal balloon was filled with 10 mL of sterile water. The catheter was placed to gravity drainage and sutured in place utilizing 2-0 Ethilon suture material. A dry sterile dressing was placed. Patient tolerated the procedure well and without immediate complic ation. Patient was transported to radiology nurses holding area for further monitoring prior to discharge. FINDINGS: Technically successful CT-guided 14 American suprapubic catheter placement within the urinary bladder w ith positioning confirmed by [address] images. Shannon catheter is noted in the urinary bladder. Initial district scout executive images demonstrates a few increased den sity foci the base of the urinary bladder which demonstrate different positions between the initial images and the final images suggesting urinary bladder calculi largest measuring 5 mm. Gas is seen in the urinary bladder likely related to the chronic indwelling Shannon catheter. There is distention of the rectum with retained fecal material. There is increased density of the retained fecal material which may be related to ingestion of prior bismuth material. Vascular calcifications are seen. IMPRESSION: 1. Suggestion of tiny urinary bladder calculi. 2. Technically successful CT-guided suprapubic catheter placement.
== END 2020-06-12 15:10 | disposition home or self-care (01) ==
LOC: CT 08:35
PROVIDERS: ATTEND Urology
PROC: 0T9B30Z Drainage of Bladder with Drainage Device, Percutaneous Approach (ICD-10-PCS; principal; 2020-06-12)
DX: N40.1 Benign prostatic hyperplasia with lower urinary tract symptoms (principal); R33.8 Other retention of urine; N13.8 Other obstructive and reflux uropathy; R35.0 Frequency of micturition; N32.81 Overactive bladder; I10 Essential (primary) hypertension; H90.3 Sensorineural hearing loss, bilateral; Z79.899 Other long term (current) drug therapy
CPT/HCPCS: 51102; 77002; 85025; 85610; 85730; C2627